=== PATIENT | male | born 1935 | race Caucasian/White ===

== ENCOUNTER 2016-10-27 19:34 | Inpatient (IN) ==
[2016-10-27 19:59] LABS: MANUAL DIFF NEEDED? NO
[2016-10-27 20:17] LABS: BASO% 0.6 % (0.0-0.8); EOS# 0.58 X1000 (0.0-0.7); EOS% 8.9 % (0.0-10.0); HEMATOCRIT 31.9 % (42.0-52.0); HEMOGLOBIN 9.9 g/dL (14.0-18.0); LYMPH# 2.41 X1000 (1.2-3.4); MCH 24.9 PG (27-31); MCV 80.2 FL (81-99); MONO# 0.69 X1000 (0.11-0.59); MONO% 10.6 % (1.7-9.3); MPV 10.7 FL (7.4-10.4); NEUT% 42.9 % (42.2-75.2); PLT 236 X1000 (130-400); RBC 3.98 XMIL (4.7-6.1)
[2016-10-27 20:39] LABS: ALBUMIN 3.8 g/dL (3.5-5.0); CALCIUM 8.7 mg/dL (8.8-10.2); POTASSIUM 4.1 mmol/L (3.5-5.1); TOTAL BILIRUBIN 0.31 mg/dL (0.20-1.00); TOTAL PROTEIN 7.3 g/dL (6.3-8.3)
[2016-10-27 23:33] LABS: INR 1.08; PROTIME 11.4 Seconds (9.2-11.7); PTT 28.5 Seconds (22.0-36.0)
[2016-10-28] MEDS ORDERED: NS 1,000 ML IV ONE (00:29)
--- NOTE | 2016-10-28 01:31 | PROVIDER DOCUMENTATION ---
This chart was entered by Kristie Puri Scribe, acting as scribe for Praveen Avila PA. HPI-Abdominal Pain/GI Problem - General Chief Complaint: GI Bleed Stated Complaint: PASSING BLOOD Time Seen by Provider: 10/27/16 22:32 Source: patient Allergies/Adverse Reactions: Patient Allergies Allergy/AdvReac Type Severity Reaction Status Date / Time No Known Allergies Allergy Verified 10/27/16 22:55 Home Medications: Home Medication List Medication Instructions Recorded Confirmed Last Taken Type Aspirin 81 mg PO DAILY 10/24/13 10/27/16 10/27/16 History Isosorbide Mononitrate E.r. [Imdur] 30 mg PO DAILY 10/24/13 10/27/16 10/27/16 History Metoprolol [Lopressor] 25 mg PO BID 10/24/13 10/27/16 10/27/16 History PRAVAstatin [Pravachol] 40 mg PO DAILY 10/24/13 10/27/16 10/27/16 History Metoclopramide [Reglan] 10 mg PO DAILY 10/27/16 10/27/16 10/27/16 History Omeprazole 20 mg PO DAILY 10/27/16 10/27/16 10/27/16 History Sucralfate [Sucralfate] 1 gm PO TID 10/27/16 10/27/16 10/27/16 History - History of Present Illness-ABD Nature of Presenting Problems: PT IS A 80YOM PRESENTING TO THE ED C/O BLOODY BM. PT STATES ABOUT AN HOUR AGO HE FELT THE URGE TO HAVE A BM AND WENT TO RESTROOM AND PASSED A LARGE AMOUNT OF BRIGHT RED BLOOD, PT WAS UNSURE IF THERE WAS ANY STOOL IN THE BLOOD. PT STATES THEN ABOUT 30MINS AFTER THAT HE HAD ANOTHER LARGE AMOUNT OF BRIGHT RED BLOOD STOOLS. PT DENIES ANY ABD PAIN OR OTHER COMPLAINTS. PT DOES STATE HE SAW HIS PCP APPROXIMATELY A WEEK AGO AND PUT ON CARAFATE AND HAS NO ABD DISCOMFORT OR ISSUES UNTIL THIS EVENING. Abdominal Pain Onset Location: denies: RUQ, LUQ, RLQ, LLQ, epigastric, periumbilical, suprapubic, generalized abdomen, flank, unknown, other Pain Radiation: denies: no radiation, RUQ, LUQ, RLQ, LLQ, epigastric, periumbilical, flank, groin, scapula, shoulder, chest, back, other Quality of Pain: denies: none, aching, burning, cramping, dull, fullness, indigestion, pressure, sharp, stabbing, tearing, throbbing, tightness, other Severity in ED: reports: moderate Onset/Duration: reports: just prior to arrival, 1-3 hours ago Timing: reports: intermittent Activities at Onset: reports: light activity Modifying Factors: improves with: nothing Associated Symptoms: reports: diarrhea. denies: chest pain, constipation Last BM: this evening Dark Stools Present?: reports: bright red blood Rectal Bleeding: reports: other (LARGE AMOUNT OF BRIGHT RED BLOOD) Rectal Pain: reports: none Emesis Description: reports: none Bruising or Bleeding Gums?: No Similar Symptoms Previously?: No Recently seen or treated by another doctor?: No Review of Systems - Adult - REVIEW OF SYSTEMS - ADULT Constitutional: reports: no symptoms reported Eyes: reports: no symptoms reported Ears, Nose, Mouth & Throat: reports: no symptoms reported Cardiovascular: reports: no symptoms reported Respiratory: reports: no symptoms reported Gastrointestinal: reports: see HPI, diarrhea, rectal bleeding. denies: abdominal pain, nausea, vomiting Genitourinary: reports: no symptoms reported Musculoskeletal: reports: no symptoms reported Integumentary: reports: no symptoms reported Neurological: reports: no symptoms reported Psychiatric: reports: no symptoms reported Endocrine: reports: no symptoms reported Hematologic/Lymphatic: reports: no symptoms reported Allergic/Immunologic: reports: no symptoms reported All Other Systems: Reviewed and Negative Past History - Adult - PAST MEDICAL HISTORY-ADULT Review of Records: reports: Old Records Reviewed, Nursing Assessment Review, Medications Reviewed, Social history reviewed & non-contributory. Major Childhood Illnesses: reports: denies history Cardiovascular: reports: denies history Respiratory: reports: denies history Gastrointestinal: reports: denies history Obstetrical/Gynecological: reports: denies history Genitourinary: reports: denies history Musculoskeletal: reports: denies history Neurological: reports: denies history Endocrine/Immune: reports: denies history Other Conditions: reports: denies history - IMMUNIZATION STATUS Childhood Immunizations: See Nurse Assessment Flu Vaccine: See Nurse Assessment - FAMILY HISTORY Family History: reviewed, not pertinent - SOCIAL HISTORY Smoking: denies, non-smoker Substance Use: none/never, denies Alcohol Use Frequency: never Living Situation: family Physical Exam-General - PHYSICAL EXAM-ADULT Initial Vital Signs Reviewed: Yes - CONSTITUTIONAL General Appearance: appears well, alert, mild distress. negative: no apparent distress - EYES Eyes: PERRL/EOMI, pink conjunctivae, fundi clear, no AV nicking - HEAD, EARS, NOSE, MOUTH & THROAT HENMT: normocephalic/atraumatic, moist mucous membranes, normal ENT inspection, TMs normal, pharynx normal - NECK Neck: non-tender, full range of motion, supple, normal inspection - RESPIRATORY Respiratory: chest non-tender, lungs clear, normal breath sounds, no pleuratic chest pain, no respiratory distress, no accessory muscle use - CARDIOVASCULAR Cardiovascular: normal peripheral pulses, regular rate, rhythm, no edema, no gallop, no JVD, no murmur - GASTROINTESTINAL (ABDOMEN) Abdominal Exam: normal bowel sounds, non tender, soft, no organomegaly, no pulsatile mass - GENITOURINARY Rectal Exam: normal rectal tone, blood streaked stool. negative: decreased tone , hemorrhoids, mass, prostate enlarged/nodule, tenderness Hemoccult Exam: other (the stool occult came back as negative; however there was obvious gross blood even on the exam and on my finger so I do not agree with this) - LYMPHATIC Lymphatic: no adenopathy - MUSCULOSKELETAL Back Exam: normal inspection, no CVA tenderness, no vertebral tenderness Extremity: normal range of motion, non-tender, normal gait, normal inspection, no pedal edema, no calf tenderness, normal capillary refill, pelvis stable - SKIN Integumentary: normal color, normal turgor, warm/dry - NEUROLOGIC Neurologic: cream ripener II-XII nml as tested, grossly normal, no motor/sensory deficits - PSYCHIATRIC Psych/Mental Status: normal mood/affect, normal thought content, normal thought process, oriented x 3 Progress - PLAN OF CARE/RESULTS Progress/Plan/Lab Results: Vital Signs - 8 hr 10/27/16 19:47 Temperature 97.8 F Pulse Rate 60 Respiratory Rate 12 Blood Pressure 119/75 O2 Sat by Pulse Oximetry 100 Laboratory Results - last 24 hr 10/27/16 10/27/16 19:50 19:50 WBC 6.52 RBC 3.98 L Hgb 9.9 L Hct 31.9 L MCV 80.2 L MCH 24.9 L MCHC 31.0 L RDW Std Deviation 15.6 H Plt Count 236 MPV 10.7 H Immature Gran % (Auto) 0.0 Neut % (Auto) 42.9 Lymph % (Auto) 37.0 [place] % (Auto) 10.6 H Eos % (Auto) 8.9 Baso % (Auto) 0.6 Immature Gran # (Auto) 0.00 Neut # (Auto) 2.80 Lymph # (Auto) 2.41 [place] # (Auto) 0.69 H Eos # (Auto) 0.58 Baso # (Auto) 0.04 Sodium 143 Potassium 4.1 Chloride 105 Carbon Dioxide 23 L Anion Gap 15 BUN 26 H Creatinine 1.3 H Estimated GFR/1.73 m2 53 BUN/Creatinine Ratio 20 Glucose 108 H Calculated Osmolality 290 Calcium 8.7 L Total Bilirubin 0.31 AST 17 ALT 9 L Alkaline Phosphatase 67 Total Protein 7.3 Albumin 3.8 Globulin 3.5 Albumin/Globulin Ratio 1.1 Orders Category Date Time Status Saline Loc NOW Care 10/27/16 22:33 Active CBC WITH DIFF [HEME] Stat Lab 10/27/16 19:50 Completed CMP [COMPREHENSIVE METABOLIC PANEL] [CHEM] Stat Lab 10/27/16 19:50 Completed OCCULT BLOOD NON-FECES Stat Lab 10/27/16 19:49 Uncollected PROTIME WITH INR [COAG] Stat Lab 10/27/16 22:33 Ordered PTT [COAG] Stat Lab 10/27/16 22:33 Ordered TYPE & SCREEN [BBK] Stat Lab 10/27/16 22:33 Ordered Will admit pt for GI bleed. I believe that this is most likely diverticulosis given the H&P. Result Diagrams: 10/27/16 19:50 10/27/16 19:50 - CONSULTS/PCP/HOSPITALIST Notification #1 *Consult/PCP/Hospitalist*: Dr. Ashley Time Discussed: 01:30 Consult Disposition: Admit Departure - Departure Time of Disposition Decision: 01:30 DIAGNOSIS: GI bleed Qualifiers: GI bleed type/associated pathology: unspecified gastrointestinal hemorrhage type Qualified Code(s): K92.2 - Gastrointestinal hemorrhage, unspecified Disposition: ADMITTED INPATIENT 09 Certified Medical Emergency: Emergent Condition: Stable Referrals and Follow-Ups: David Vail,Tang Aguirre MD [Primary Care Provider] - Attestation - Physician/ PAULINA Attestation Patient care was provided by Advanced Practice Provider:: Yes Advanced Practice Provider:: Praveen Avila Advanced Practice Provider documentation review:: The Mid-level provider documentation, treatment plan and medical decision making was reviewed by the physician who agrees with all treatment and medical decision making by the MLP. This chart was documented by the indicated scribe, (Kristie Puri Scribe) and accurately reflects the services I performed and decisions made by Austin russ Steven Wesley, PA, as attested by the provider's signature.
--- NOTE | 2016-10-28 03:46 | HISTORY AND PHYSICAL ---
PRIMARY CARE PHYSICIAN: Dr. Tang Hernandez. CHIEF COMPLAINT: Rectal bleeding. HISTORY OF PRESENT ILLNESS: This is an 80-year-old, male with a past medical history of coronary artery disease, hypertension, and hypercholesteremia who presented to the emergency department after he passed some rectal bleeding. Patient reported that he noticed bright red blood in the stool that happened yesterday around 7 p.m. After 5 minutes, he had another episode of moderate amount of bleeding per rectum so he decided to come to the emergency department. He denies any heartburn, any nausea, vomiting. In the ER, he was evaluated and he was found to have a hemoglobin that was low, 9.9. Because of that, we are going to admit this patient to the hospital for a GI bleeding workup. PAST MEDICAL HISTORY: 1. Hypertension. 2. Coronary artery disease. 3. Dyslipidemia. PAST SURGICAL HISTORY: 1. Placement of a permanent pacemaker 5 years ago. 2. CABG x4 in 2010 performed at [facility]. SOCIAL HISTORY: Patient reports living with his . Denies drinking alcohol , using tobacco, or abusing drugs. ALLERGIES: No known drug allergies. REVIEW OF SYSTEMS: Eleven systems were reviewed and all symptoms are related to H and P. PHYSICAL EXAMINATION: VITALS: Temperature 97.6 degrees, heart rate 62, respiratory rate 16, blood pressure 135/73, O2 saturation 100% on room air. GENERAL: This is an 80-year-old, male, lying in bed, in no acute distress. HEENT: Head is normocephalic and atraumatic. Anicteric sclerae and pale conjunctivae. Mucous membranes are moist. NECK: Supple. No carotid bruits. No lymphadenopathy. No thyromegaly. CARDIOVASCULAR: S1, S2 heard. No murmurs, gallops, or rubs. Regular rate and rhythm. RESPIRATORY: Clear bilaterally to auscultation. No work of breathing or using accessory muscles. ABDOMEN: Soft, nontender to palpation. Bowel sounds present. No organomegaly. EXTREMITIES: No clubbing, cyanosis, or edema. Peripheral pulses present in both legs. NEUROLOGICAL: Patient is alert and oriented x3. Able to move 4 extremities. Cranial nerves 2-12 grossly normal. LABORATORY DATA: White cell count 6.52, hemoglobin 9.9, hematocrit 31.9, platelets 236,000. CMP shows creatinine 1.3 and BUN 26. ASSESSMENT: 1. Rectal bleeding. 2. Coronary artery disease. 3. Hypertension. 4. Hyperlipidemia. PLAN: 1. The patient is going to be admitted to the hospital for rectal bleeding. Gastroenterology has been consulted. We are going to provide fluid resuscitation with normal saline at 75 mL per hour. 2. For coronary artery disease, we are going to hold, of course, aspirin in anticipation for any future procedure. 3. For hypertension and hypercholesteremia, we will continue with home medications. 4. For BRIAN, actually we are going to provide IV fluids, in this case at 75 mL of normal saline per hour. 5. Further recommendations to follow according to the clinical situation of the patient. 6. His primary care physician, Dr. Tang Hernandez, will resume care of this patient today at 7 a.m. cc: Timi Verdugo MD MTDD
[2016-10-28] MEDS ORDERED: ZOFRAN IV PRN (04:15)
[2016-10-28 05:45] LABS: MANUAL DIFF NEEDED? NO
[2016-10-28 05:48] LABS: BASO% 0.5 % (0.0-0.8); EOS# 0.67 X1000 (0.0-0.7); EOS% 8.9 % (0.0-10.0); HEMATOCRIT 31.9 % (42.0-52.0); HEMOGLOBIN 9.9 g/dL (14.0-18.0); LYMPH# 2.88 X1000 (1.2-3.4); LYMPH% 38.3 % (20.5-51.1); MCH 24.8 PG (27-31); MCV 79.9 FL (81-99); MONO# 0.85 X1000 (0.11-0.59); MONO% 11.3 % (1.7-9.3); MPV 10.1 FL (7.4-10.4); PLT 235 X1000 (130-400); RBC 3.99 XMIL (4.7-6.1)
[2016-10-28] MEDS: NS 1,000 ML IV SCH ×2 (05:58→20:40)
[2016-10-28] MEDS: PROTONIX IV SCH ×2 (05:59→15:46)
[2016-10-28 06:16] LABS: AGAP 11; BUN 27 mg/dL (8-22); CALCIUM 8.8 mg/dL (8.8-10.2); CHLORIDE 106 mmol/L (98-107); COSMO 292; POTASSIUM 4.4 mmol/L (3.5-5.1); SODIUM 144 mmol/L (136-145); TCO2 27 mmol/L (25-35)
--- NOTE | 2016-10-28 08:49 | Diag Imaging Result Document ---
PROCEDURE NAME: ABDOMEN/PELVIS W/O CONTRAST - 10/28/2016 CT ABDOMEN AND PELVIS: A CT dose reduction protocol was used. COMPARISON: None. FINDINGS: There is moderately advanced peripheral interstitial pulmonary fibrosis in the lung bases. There are pacemaker leads in the heart. There is a moderately large hiatal hernia. There are left renal cysts. No radiodense renal stones. No hydronephrosis or hydroureter. There is severe diverticulosis of the descending and sigmoid colon. No bowel obstruction or inflammation. Urinary bladder, prostate, and rectum are normal. Advanced degenerative changes of the lower spine. No acute bony lesions. IMPRESSION: Nonspecific findings described above. Negative for renal stone disease. MTDD
[2016-10-28] MEDS ORDERED: PRAVACHOL PO SCH (09:00)
[2016-10-28 09:29] LABS: IRON SATURATION 5 %; TIBC 373 ug/dL; TOTAL IRON 19 ug/dL (53-167); UNBOUND IRON 354 ug/dL (112-346)
[2016-10-28] MEDS: REGLAN PO SCH (10:38)
[2016-10-28] MEDS: IMDUR PO SCH (10:38)
[2016-10-28] MEDS: CARAFATE PO SCH ×3 (10:38→20:40)
[2016-10-28] MEDS: LOPRESSOR PO SCH ×2 (10:38→20:40)
[2016-10-28] MEDS: PRAVACHOL PO SCH (20:40)
[2016-10-28] MEDS ORDERED: GOLYTELY PO ONE (21:00)
--- NOTE | 2016-10-29 06:04 | CONSULTATION ---
DATE OF CONSULTATION: 10/28/2016 PRIMARY CARE PHYSICIAN: Tang Hernandez M.D. REFERRING PHYSICIAN: Timi Verdugo M.D. INDICATION FOR CONSULTATION: 1. Rectal bleeding. 2. Anemia. HISTORY OF PRESENT ILLNESS: The patient is an 80-year-old white male who has severe coronary artery disease, hypertension, hypercholesterolemia. The patient reports that approximately 10 days prior to admission, he noted an increase in his chronic abdominal pain which included heartburn, indigestion, epigastric discomfort. He reports that the pain was so severe that he presented to urgent care and was placed on PPI therapy and Carafate. His abdominal pain, nausea and heartburn have resolved with the current treatment. However, approximately 1 day prior to admission, he developed bright red blood per rectum. He subsequently presented to the emergency room for further evaluation. He was found to have a hemoglobin of 9.9. We are asked to perform endoscopic evaluation. PAST MEDICAL HISTORY: 1. Hypertension. 2. Coronary artery disease. 3. Dyslipidemia. 4. Atrial fibrillation. 5. GERD. 6. Large hiatal hernia. 7. Diverticulosis. 8. No history of colon polyps. He reports a negative screening colonoscopy 3 years ago. 9. Interstitial pulmonary fibrosis. 10. Degenerative disk disease of the lower spine. PAST SURGICAL HISTORY: 1. Placement of a permanent pacemaker in 2011. 2. Coronary artery bypass surgery x 4 vessels in 2010 performed at [facility]. SOCIAL HISTORY: Negative for alcohol, tobacco or recreational drug use. He is and lives with his . MEDICATION ALLERGIES: None. HOME MEDICATIONS: 1. Carafate. 2. Pravachol. 3. Omeprazole. 4. Lopressor. 5. Reglan. 6. Imdur. 7. Aspirin. (Please note that the patient was begun on Carafate and Reglan approximately 1 week ago). REVIEW OF SYSTEMS: Remarkable for recent epigastric discomfort and GI distress as noted above. He also reports multiple bloody bowel movements prior to admission and in the emergency room. He denies chest pain and shortness of breath. PHYSICAL EXAMINATION: General: On exam, he is in no acute distress. Vital Signs: His blood pressure is 101/70 pulse of 59, respirations 16, temperature of 98.7 degrees. HEENT: Negative for jaundice. His sclerae are pale. His oropharyngeal mucosal membranes are normal. Pulmonary: Lungs are clear to auscultation with normal respiratory effort. Cardiovascular Exam: Reveals regular rate and rhythm with no murmurs, gallops, or rubs. He does have a midline sternotomy scar that is well healed. Abdominal Exam: His abdomen is soft and nontender. There is no rebound or guarding. There are normoactive bowel sounds. Extremities: Bilaterally are negative for cyanosis, clubbing, or edema. Neurologic: He is alert and oriented x3 with appropriate mood, affect, and memory. OBJECTIVE DATA: Reveals a hemoglobin of 9.9 with hematocrit of 31.9 and a white count 7.51. He has 235,000 platelets. Sodium is 144, potassium 4.4, chloride 106, CO2 27, BUN 27, creatinine 1.2, glucose 92. Calcium is 8.8, B12 is 236, iron 19 and ferritin 12. IMPRESSION: 1. Rectal bleeding. 2. Gastroesophageal reflux disease. 3. Hiatal hernia. 4. Diverticulosis. 5. Vitamin B12 deficiency. 6. Iron deficiency anemia. RECOMMENDATION: 1. In light of the patient's recent increase in upper GI symptoms, I recommend an EGD to further evaluate his upper GI tract. He also has significant vitamin B12 deficiency which warrants evaluation of the gastric lining as well as the duodenal lining for malabsorptive processes. 2. He has active rectal bleeding. He has a history of diverticulosis. There is no history of colon polyps or colon cancer. However, I recommend a colonoscopy for further evaluation of his lower GI bleed. 3. Monitor serial hemoglobin and hematocrit and transfuse as indicated. 4. Continue Protonix 40 mg IV q.12 hours. 5. Continue Carafate 1 g p.o. t.i.d. Please hold this medication prior to his endoscopy. 6. Continue Reglan for the time being. We will need to determine if he truly has a need for Reglan given its potential for adverse reactions in adults, particularly those over the age 65. 7. Additional recommendations to follow based on his clinical course and his endoscopic findings. cc: MD Tang eDlgado Jr, MD Cesar Garcia-Rodriguez, MD MTDD
[2016-10-29 06:35] LABS: MANUAL DIFF NEEDED? NO
[2016-10-29 06:38] LABS: BASO% 0.8 % (0.0-0.8); EOS# 0.41 X1000 (0.0-0.7); EOS% 6.9 % (0.0-10.0); HEMATOCRIT 27.5 % (42.0-52.0); HEMOGLOBIN 8.6 g/dL (14.0-18.0); LYMPH# 1.76 X1000 (1.2-3.4); LYMPH% 29.7 % (20.5-51.1); MCH 24.9 PG (27-31); MCHC 31.3 g/dL (33-37); MCV 79.5 FL (81-99); MONO# 0.74 X1000 (0.11-0.59); MONO% 12.5 % (1.7-9.3); MPV 10.1 FL (7.4-10.4); NEUT% 50.1 % (42.2-75.2); PLT 207 X1000 (130-400); RBC 3.46 XMIL (4.7-6.1)
[2016-10-29 06:54] LABS: AGAP 10; BUN 17 mg/dL (8-22); CALCIUM 8.8 mg/dL (8.8-10.2); CHLORIDE 106 mmol/L (98-107); COSMO 285; POTASSIUM 4.2 mmol/L (3.5-5.1); SODIUM 142 mmol/L (136-145); TCO2 26 mmol/L (25-35)
[2016-10-29] MEDS: PROTONIX IV SCH ×2 (07:02→18:03)
--- NOTE | 2016-10-29 09:46 | PROGRESS NOTE ---
DATE: 10/29/2016 SUBJECTIVE: The patient says he got up 28 times last night to go to the bathroom and had bleeding in his stool 19 of those 28 times. OBJECTIVE: Vital signs: Blood pressure is 131/77, respirations 20, pulse 61, temp 98.4 degrees Fahrenheit. HEENT: Normocephalic, EOMs intact. PERRLA. Throat clear. Lungs: Clear to auscultation and percussion without rhonchi, rales, or wheezes. Heart: Regular rate and rhythm without murmurs, gallops, or friction rubs. Abdomen: Soft with active bowel sounds, no organomegaly or tenderness. Neurological: Intact grossly. LABORATORY DATA: Chemistries are essentially normal. White count is 5930, hemoglobin has dropped from 9.9 down to 8.6. Vitamin B12 level was also low at 236. His iron level was low at 19. Unsaturated iron binding was high at 354. ASSESSMENT: 1. Gastrointestinal bleed. 2. Iron-deficiency anemia. 3. Vitamin B12 deficiency. 4. Coronary artery disease. PLAN: The patient is to have endoscopy today. Will start him on Vitamin B12 injections. Please note, CT scan of the abdomen did show diverticulosis. cc: Tagn Hernandez Jr, MD
[2016-10-29] MEDS ORDERED: DIPRIVAN 1% ONE (14:14)
[2016-10-29] MEDS ORDERED: XYLOCAINE-MPF 2% ONE (14:20)
[2016-10-29] MEDS: CYANOCOBALAMIN IM SCH (15:28)
[2016-10-29] MEDS: CARAFATE PO SCH ×3 (16:07→19:23)
[2016-10-29] MEDS: IMDUR PO SCH (16:08)
[2016-10-29] MEDS: REGLAN PO SCH (16:08)
[2016-10-29] MEDS: LOPRESSOR PO SCH ×2 (16:09→21:27)
--- NOTE | 2016-10-29 16:48 | Diag Imaging Result Document ---
PROCEDURE NAME: THORAX/ABDOMEN/PELVIS - 10/29/2016 CT CHEST, ABDOMEN, AND PELVIS WITH INTRAVENOUS CONTRAST. TECHNIQUE: Dose reduction protocol. CHEST WITH CONTRAST. COMPARISON: No comparison films. FINDINGS: No pleural effusions. There is a moderate-sized hiatal hernia. No thoracic aortic aneurysm or dissection. Heart is borderline mildly prominent. Sternal wires are present. Mildly enlarged mediastinal lymph nodes. There are several calcified hilar lymph nodes with scattered granulomata. Increased interstitial markings in the periphery of the lungs consistent with fibrosis. No consolidation. IMPRESSION: 1. Fibrosis. 2. Mildly enlarged mediastinal lymph nodes. 3. There is evidence of a prior granulomatous infection. 4. Moderate-sized hiatal hernia. ABDOMEN AND PELVIS WITH ORAL AND INTRAVENOUS CONTRAST. COMPARISON: Compared to 10/28/2016. FINDINGS: There is a moderate-sized hiatal hernia. Normal spleen, liver, pancreas, gallbladder, and adrenal glands. There is a 4.1 cm cyst arising from the posterior left kidney. No aortic aneurysm. Mild atherosclerosis. No bowel obstruction. Multiple diverticula are found in the distal colon. No free air. No abscess. The urinary bladder is moderately distended. Mildly prominent prostate. IMPRESSION: 1. Moderate-sized hiatal hernia. 2. Renal cyst. 3. Diverticulosis.
[2016-10-29] MEDS: NS 1,000 ML IV SCH (17:18)
[2016-10-29] MEDS: FLAGYL 250 MG/NS 250 MG/50 ML IVPB IV SCH ×2 (18:03→23:58)
[2016-10-29] MEDS: SODIUM CHLORIDE 0.9% INJ SCH (18:03)
--- NOTE | 2016-10-29 19:08 | OPERATIVE NOTE ---
PROCEDURE DATE: 10/29/2016 REFERRING PHYSICIAN: Tang Hernandez M.D. INDICATION FOR PROCEDURE: 1. GERD. 2. Epigastric pain. 3. Hiatal hernia. 4. Iron deficiency anemia. 5. Intermittent dysphagia. PROCEDURE PERFORMED: Esophagogastroduodenoscopy. CONSENT: Informed consent was obtained from the patient prior to the procedure. The risks, benefits, and alternatives were discussed. MEDICATION: The patient received monitored anesthesia care. PERFORMING PHYSICIAN: Fadia Tony M.D. ASSISTANTS: 1. NADER Jay. 2. Yulisa Oleary RN. 3. Kanu Meléndez RN. 4. Amber Vasquez CRNA. 5. Sampson Durham M.D. (anesthesia). COMPLICATIONS: There were no complications. ESTIMATED BLOOD LOSS: None. SPECIMENS REMOVED: None. FINDINGS: After sedation was achieved, the upper endoscope was inserted to the 2nd portion of the duodenum. The hypopharynx and tubular esophagus appeared endoscopically normal. In the distal esophagus, there was a Schatzki ring with mild obstructive features at the GE junction. With moderate amount of pressure, the scope was able to pass through the Schatzki ring. The GE junction was measured at 36 cm from the incisors. There was a hiatal hernia that spanned from 36-44 cm. In the hiatal hernia sac, there were deep erosions with inflammation consistent with erosive gastritis. In the gastric body, there was mild erythema in the antrum and body as opposed to severe erosive gastritis in the hiatal hernia sac in the cardia. The fundus appeared inflamed with mild gastritis but was otherwise normal. The pylorus was endoscopically normal. There was minimal duodenitis in the duodenal bulb. After the exam was complete, the lumen was decompressed and the scope was removed without incident. IMPRESSION: 1. Schatzki ring with mild obstructive features. 2. Hiatal hernia. 3. Erosive gastritis. 4. Mild duodenitis. RECOMMENDATION: 1. Continue Protonix 40 mg daily. 2. Continue Carafate 1 g p.o. 3 times to 4 times a day for a total of 12 weeks. 3. I will schedule repeat EGD with dilation in approximately 12 weeks as the patient reports symptoms for a number of years. 4. Will proceed with a colonoscopy as previously scheduled. cc: MD Tang Delgado Jr, MD MTDD
[2016-10-29] MEDS: LEVAQUIN 750 MG/D5W 750 MG/150 ML IVPB IV SCH (19:51)
--- NOTE | 2016-10-29 20:36 | OPERATIVE NOTE ---
PROCEDURE DATE: 10/29/2016 REFERRING PHYSICIAN: Dr. Tang Hernandez M.D. INDICATION FOR PROCEDURE: 1. Rectal bleeding. 2. History of diverticulosis. 3. Iron deficiency anemia. PROCEDURE PERFORMED: Colonoscopy with biopsy. CONSENT: Informed consent was obtained from the patient prior to the procedure. The risks, benefits, and alternatives were discussed. MEDICATION: The patient received monitored anesthesia care. PERFORMING PHYSICIAN: Fadia Tony M.D. ASSISTANTS: 1. ST. [facility] 2. Yulisa Oleary RN. 3. Kanu Meléndez RN. 4. Amber Vasquez CRNA. 5. Smapson Durham M.D. (anesthesia). COMPLICATIONS: None. ESTIMATED BLOOD LOSS: Less than 2 mL. SPECIMENS REMOVED: Ascending colon mass. CECAL INTUBATION TIME: 8 minutes. WITHDRAWAL TIME: 16 minutes. PREP QUALITY: Poor. FINDINGS: After the EGD was performed, the patient was repositioned. The pediatric colonoscope was inserted to the cecum. The ileocecal valve and appendiceal orifice appeared endoscopically normal. In the proximal ascending colon, there was an apple-core lesion with ulceration and friable mucosa. The mass was firm on biopsy. Multiple biopsies were taken. Nicky ink 0.5 mL x4 was placed on the proximal side of the mass. Nicky ink 0.5 mL x4 was placed on the distal side of the lesion. Upon withdrawal of the scope, there was copious amounts of fecal residue. However, multiple sessile colon polyps that appeared benign were found in the transverse and descending colon. In the descending colon, sigmoid colon, and rectosigmoid colon there was extensive diverticulosis. There were diverticula seen throughout the colon that were mild but in the left colon, there was severe diverticulosis. It should be noted that multiple diverticula in the sigmoid colon had purulent exudate and bowel wall edema with erythema consistent with acute diverticulitis. In the upper rectum, the mucosa appeared inflamed but otherwise normal. On retroflexed view, there were medium external hemorrhoids. After the exam was complete, the lumen was decompressed and the scope was removed without incident. IMPRESSION: 1. Proximal ascending colon apple-core lesions strongly suspicious for adenocarcinoma of the colon. 2. Multiple benign-appearing colon polyps that remain intact. 3. Stevens diverticulosis with a left sided predominance. 4. Rectus sigmoid acute diverticulitis. 5. External hemorrhoids. RECOMMENDATIONS: 1. Because of the lesion in the ascending colon, I will obtain a chest, abdomen , and pelvis CT scan. 2. I will also check a CEA level. 3. I recommend a surgical consult with Dr. Darci Avalos M.D. 4. I will consult Dr. Henry Black M.D. from hematology/oncology service for further assistance. 5. Await endoscopic biopsy results. 6. Findings were discussed with the patient, his , and their daughter. 7. Our plan was discussed with Dr. Tang Hernandez. cc: MD Tang Delgado Jr, MD [facility] HOSPITALMichelle
[2016-10-29] MEDS: PRAVACHOL PO SCH (21:28)
[2016-10-30] MEDS: NS 1,000 ML IV SCH ×2 (04:07→16:24)
[2016-10-30] MEDS: FLAGYL 250 MG/NS 250 MG/50 ML IVPB IV SCH ×3 (05:47→21:37)
[2016-10-30] MEDS: PROTONIX IV SCH ×2 (05:48→17:08)
[2016-10-30 06:37] LABS: MANUAL DIFF NEEDED? NO
[2016-10-30 06:48] LABS: BASO% 0.3 % (0.0-0.8); EOS# 0.19 X1000 (0.0-0.7); EOS% 2.2 % (0.0-10.0); HEMOGLOBIN 7.9 g/dL (14.0-18.0); LYMPH# 1.92 X1000 (1.2-3.4); LYMPH% 22.2 % (20.5-51.1); MCH 24.5 PG (27-31); MCHC 30.4 g/dL (33-37); MCV 80.5 FL (81-99); MONO# 0.91 X1000 (0.11-0.59); MONO% 10.5 % (1.7-9.3); NEUT% 64.8 % (42.2-75.2); PLT 208 X1000 (130-400); RBC 3.23 XMIL (4.7-6.1)
[2016-10-30 07:08] LABS: CALCIUM 8.6 mg/dL (8.8-10.2); POTASSIUM 5.1 mmol/L (3.5-5.1)
--- NOTE | 2016-10-30 08:27 | PROGRESS NOTE ---
DATE: 10/30/2016 SUBJECTIVE: The patient says he is feeling fine, has not had a bowel movement in the last 24 hours. Had bleeding in his stool before that. Did have his colonoscopy which shows an apple-core lesion in the proximal ascending colon. Biopsies were done and are pending. CT scan of the pelvis has been ordered. He has already had a CT scan of the abdomen. Consultation has been made with surgery, Dr. Darci Avalos, and with oncology, Dr. Henry Black. OBJECTIVE: Vital Signs: Blood pressure is 116/63, pulse 64 and regular, respirations 16 and unlabored, temperature 98.3 degrees Fahrenheit. HEENT: Normocephalic. EOM's intact. PERRLA. Throat clear. Lungs: Clear to auscultation and percussion without rhonchi, rales, or wheezes. Heart: Regular rate rhythm without murmurs, gallops, or friction rubs. Abdomen: Soft. Active bowel sounds. No organomegaly or tenderness. Neurological exam: Intact grossly. LABS: White count is 8630, hemoglobin is down to 7.9, hematocrit 26.0. Potassium 5.1, sodium 144, creatinine 1.3, BUN 15. ASSESSMENT: 1. Gastrointestinal bleed. 2. Probable colon cancer. 3. Anemia. 4. Iron deficiency. 5. Vitamin B 12 deficiency. 6. Coronary artery disease. PLAN: Continue support and workup. cc: Tang Hernandez Jr, MD
[2016-10-30] MEDS: IMDUR PO SCH (09:39)
[2016-10-30] MEDS: LOPRESSOR PO SCH ×2 (09:39→23:09)
[2016-10-30] MEDS: CARAFATE PO SCH ×3 (09:39→16:34)
[2016-10-30] MEDS: REGLAN PO SCH (09:39)
[2016-10-30] MEDS: CYANOCOBALAMIN IM SCH (09:40)
--- NOTE | 2016-10-30 11:15 | CONSULTATION ---
DATE OF CONSULTATION: 10/30/2016 REFERRING PHYSICIAN: Dr. Fadia Tony. REASON FOR REFERRAL: GI bleed, ascending colon mass. HISTORY OF PRESENT ILLNESS: Mr. Lachelle Guerrero is a very pleasant, 80-year-old man with a history of coronary artery disease, hypertension and dyslipidemia who was admitted to [facility] on Tuesday after experiencing rectal bleeding. He was found to have a hemoglobin of 9.9. GI was consulted and Dr. Fadia Tony performed a colonoscopy. Upon further evaluation, she found an ascending colon mass. A CEA level was obtained as well as a CT of the chest, abdomen and pelvis which showed mildly enlarged mediastinal lymph nodes. Dr. Avalos has been consulted to discuss a possible resection. Today the patient's hemoglobin is 7.9, and hematocrit is 26. He is iron deficient with an iron saturation of 5%. He is also deficient in vitamin B12. Vitamin B12 injections have been started. The Hematology/Oncology service was placed on consult to provide further workup and treatment options. PAST MEDICAL HISTORY: As mentioned above. PAST SURGICAL HISTORY: Status post CABG x4 in 2010. Pacemaker placement 5 years ago. SOCIAL HISTORY: The patient denies alcohol, tobacco or illicit drug use. ALLERGIES: No known drug allergies. MEDICATIONS: As per medication sheet. REVIEW OF SYSTEMS: As per HPI. Otherwise, a 12-point review of systems was negative. PHYSICAL EXAMINATION: General: The patient appears to be in no apparent distress. Vital Signs: Blood pressure 116/63, pulse 64, respirations 16, temperature 98.3 degrees Fahrenheit, O2 saturation 98% on room air. HEENT: Head normocephalic, atraumatic. Mucosa is pink and moist. Pupils reactive to light. Oropharynx clear. Neck: Supple. No lymphadenopathy or thyromegaly. Cardiovascular: S1, S2. Regular rate and rhythm. No murmurs noted. Respiratory: Breath sounds clear to auscultation bilaterally. No rhonchi, rales, or wheezing noted. Abdomen: Soft, nontender, nondistended. Positive for bowel sounds. Extremities: No edema or evidence of DVT or cyanosis. Skin: No rashes or lesions noted. Neurological: No focal neurological deficits. ASSESSMENT: 1. Ascending colon mass. 2. Iron deficiency anemia. 3. Vitamin B12 deficiency. PLAN: 1. We agree with consulting Dr. Walker to discuss a possible resection. We will plan to discuss chemotherapy options after surgery and depending on the lymph node involvement. Biopsy is pending. 2. Iron deficiency. This is secondary to a GI bleed. We will infuse Venofer 300 mg IV daily x2 doses. We will also transfuse 1 unit of packed red blood cells and recheck a CBC in the a.m. 3. We agree with replacing vitamin B12 with injections daily. Further workup and treatment options will depend upon the patient's hospital course as well as response to current therapy. Thank you for this consult and allowing us to take part in the care of this patient. Dictated by AJ Blanton for Henry Black MD cc: MD Tang Lopez Jr, MD
--- NOTE | 2016-10-30 11:41 | CONSULTATION ---
DATE OF CONSULTATION: 10/30/2016 CHIEF COMPLAINT: Colon tumor. HISTORY: This is an 80-year-old gentleman who was admitted with rectal bleeding first noticed in the past week. He underwent a colonoscopy revealing a right-sided apple core lesion. It was tattooed by Dr. Tony. PAST MEDICAL HISTORY: Pertinent for hypertension, coronary artery disease, dyslipidemia. He had coronary bypass in 2010. He had a permanent pacemaker placed at that time. FAMILY HISTORY: Noncontributory. SOCIAL HISTORY: He is . Lives with his . Has an RN daughter. He does not drink alcohol or smoke. HOME MEDICATIONS: 1. Pravachol 40 mg daily. 2. Imdur 30 mg daily. 3. Metoprolol 25 mg b.i.d. 4. Aspirin 81 mg daily. 5. Omeprazole 20 mg daily. 6. Sucralfate 1 g t.i.d. 7. Reglan 10 mg daily. ALLERGIES: He has no known drug allergies. REVIEW OF SYSTEMS: Rather unremarkable. PHYSICAL EXAMINATION: Afebrile. Heart rate 60, respiratory rate 18, blood pressure 130/70. No cervical adenopathy. No thyroid masses. bilateral breath sounds. Heart: Regular rate and rhythm. Pacemaker is palpated in the left upper anterior chest. Abdomen is soft and nontender. Femoral pulses are present. No peripheral edema. He is awake and alert. DIAGNOSTICS: White count 8600, hemoglobin 7.9, hematocrit 26. BUN 15, creatinine 1.3. ASSESSMENT: Ascending colon cancer. PLAN: Right colectomy. I discussed the procedure, the benefits and risks with Mr. Guerrero. He understands and wants to proceed. We will put him back on clear liquids. Prep his bowel tomorrow in preparation for surgery on 11/01/2016. Thanks for the opportunity to see him. cc: MD Tang Jimenez Jr, MD
[2016-10-30] MEDS: SODIUM CHLORIDE 0.9% INJ SCH (17:08)
[2016-10-30] MEDS: LEVAQUIN 750 MG/D5W 750 MG/150 ML IVPB IV SCH (17:08)
[2016-10-30] MEDS: VENOFER 300 MG in NS 250 ML IV SCH (19:39)
[2016-10-30] MEDS: PRAVACHOL PO SCH (21:36)
[2016-10-31] MEDS: NS 1,000 ML IV SCH ×3 (04:45→18:29)
[2016-10-31] MEDS: FLAGYL 250 MG/NS 250 MG/50 ML IVPB IV SCH ×4 (04:46→21:41)
[2016-10-31] MEDS: PROTONIX IV SCH ×2 (04:46→17:51)
[2016-10-31] MEDS: SODIUM CHLORIDE 0.9% INJ SCH (04:46)
[2016-10-31 06:42] LABS: MANUAL DIFF NEEDED? NO
[2016-10-31 07:22] LABS: BASO% 0.5 % (0.0-0.8); EOS# 0.53 X1000 (0.0-0.7); EOS% 8.9 % (0.0-10.0); HEMATOCRIT 29.7 % (42.0-52.0); HEMOGLOBIN 9.4 g/dL (14.0-18.0); IMM GRAN# 0.02 X1000 (0.0-0.04); IMM GRAN% 0.3 % (0.0-0.5); LYMPH# 1.32 X1000 (1.2-3.4); LYMPH% 22.3 % (20.5-51.1); MCH 25.5 PG (27-31); MCHC 31.6 g/dL (33-37); MCV 80.5 FL (81-99); MONO# 0.63 X1000 (0.11-0.59); MONO% 10.6 % (1.7-9.3); MPV 10.2 FL (7.4-10.4); NEUT% 57.4 % (42.2-75.2); PLT 204 X1000 (130-400); RBC 3.69 XMIL (4.7-6.1)
[2016-10-31] MEDS: LOPRESSOR PO SCH (08:45)
[2016-10-31] MEDS: VENOFER 300 MG in NS 250 ML IV SCH (08:45)
[2016-10-31] MEDS: CARAFATE PO SCH ×3 (08:45→17:51)
[2016-10-31] MEDS: REGLAN PO SCH (08:46)
[2016-10-31] MEDS: CYANOCOBALAMIN IM SCH (08:46)
[2016-10-31] MEDS: IMDUR PO SCH (08:46)
[2016-10-31] MEDS ORDERED: CITRATE OF MAGNESIA PO ONE (10:00)
--- NOTE | 2016-10-31 11:06 | PROGRESS NOTE ---
DATE: 10/31/2016 SUBJECTIVE: The patient says he had a little scapular pain for about 15 minutes but it has gone away. Otherwise, he seems to be doing all right. He does tell me that he has not seen his sleep manager since last April and before he has surgery he would like to have cardiological evaluation. OBJECTIVE: Vital Signs: Blood pressure 126/72, respirations 20, pulse 59, temperature 97.6 degrees Fahrenheit. HEENT: Normocephalic. EOMs intact. PERRLA. Throat clear. Lungs: Clear to auscultation and percussion without rhonchi, rales, or wheezes. Heart: Regular rate rhythm without murmurs, gallops, or friction rubs. Abdomen: Soft. Active bowel sounds. No organomegaly or tenderness. No more rectal bleeding. Neurological: Intact grossly. ASSESSMENT: 1. Lesion right colon, most likely cancer, with an apple-core lesion. 2. Coronary artery disease. PLAN: We will get a sleep manager to evaluate today. Plan surgery for tomorrow. cc: Tang Hernandez Jr, MD
[2016-10-31] MEDS: ERYTHROMYCIN BASE PO SCH ×3 (15:45→21:40)
[2016-10-31] MEDS: NEOMYCIN PO SCH ×3 (15:46→21:41)
[2016-10-31] MEDS ORDERED: LOPRESSOR PO ONE (18:00)
[2016-10-31] MEDS: LEVAQUIN 750 MG/D5W 750 MG/150 ML IVPB IV SCH (18:50)
[2016-10-31] MEDS: PRAVACHOL PO SCH (21:40)
--- NOTE | 2016-10-31 23:30 | CONSULTATION ---
DATE OF CONSULTATION: 10/31/2016 IMPRESSION: 1. Atherosclerotic coronary disease. A) Status post previous inferior myocardial infarction. B) Status post coronary bypass grafting in 2011 at [facility]. C) Stress myocardial study 2013 demonstrated evidence of previous inferior infarction but with some trivial mild jessica-infarct ischemia but no significant burden of ischemia and a left ventricular ejection fraction 53%. D) Patient continues without angina. 2. Right colon lesion felt to be malignant. Right hemicolectomy planned. 3. Hypertension. 4. Hyperlipidemia. 5. Status post permanent pacemaker implant 5 years ago following coronary bypass surgery at [facility]. RECOMMENDATIONS: 1. Patient appears to be acceptably low perioperative risk for cardiac complications with hemicolectomy. 2. Continue beta-glenn perioperatively as permitted. HISTORY: This 80-year-old white male with past history of previous inferior infarction, coronary bypass grafting, hypertension and hyperlipidemia was recently admitted after he developed rectal bleeding. He has been found to have an apple core lesion in his right colon and right hemicolectomy is planned. Perioperative cardiac risk assessment was requested. He has continued fairly active since his bypass surgery. He walks without any chest discomfort or dyspnea. There has been no orthopnea. There has been no palpitations. He had a stress myocardial perfusion study in 2013 which demonstrated the above result. He has continued on medical management. PAST HISTORY: 1. Atherosclerotic coronary disease as outlined above. 2. Hypertension. 3. Hyperlipidemia. PAST SURGICAL HISTORY: Includes. 1. Coronary bypass surgery in 2010. 2. Status post permanent pacemaker. ALLERGIES: No known drug allergies. MEDICATIONS: Prior to admission as listed. SOCIAL HISTORY: He is retired and lives with his in [place], [place]. He does not smoke or use alcohol. FAMILY HISTORY: Negative for premature coronary disease. REVIEW OF SYSTEMS: Pulmonary: Negative for dyspnea. Gastrointestinal: Noteworthy for rectal bleeding. Otherwise, negative. Constitutional: Negative. Remaining review of systems negative/noncontributory with 14 total systems reviewed. PHYSICAL EXAMINATION: General: This is a pleasant, elderly male in no distress. Vital signs: Blood pressure 127/76, heart rate 61 and regular. HEENT Exam: Extraocular muscles appear intact. Mucous membranes are moist. Neck: Supple without JV distention. There are no carotid bruits. Chest: Clear to auscultation. Cardiac Exam: Reveals a regular rate and rhythm without appreciable murmur or gallop. Abdomen: Soft, nontender. Bowel sounds are normal. Extremities: Without edema. Neurologic Exam: Reveals him to be alert, fully oriented. Speech is fluent. Moves all 4 extremities equally well. Skin: Warm and dry. Psychiatric: Reveals mood to be appropriate. DIAGNOSTIC DATA: ECG demonstrates atrial paced rhythm, prolonged AZ interval, left axis deviation, right bundle branch block and inferior infarct of undetermined age. cc: MD Tang Maddox Jr, MD
[2016-11-01] MEDS: NS 1,000 ML IV SCH ×4 (00:28→22:16)
[2016-11-01] MEDS: SODIUM CHLORIDE 0.9% INJ SCH (03:39)
[2016-11-01] MEDS: FLAGYL 250 MG/NS 250 MG/50 ML IVPB IV SCH ×4 (03:39→22:17)
[2016-11-01] MEDS: PROTONIX IV SCH ×2 (03:39→18:53)
--- NOTE | 2016-11-01 05:28 | EKG Report ---
Test Performed on : 10/31/2016 11:24:14 AM Test Reason : cad Blood Pressure : / mmHG Vent. Rate : 060 BPM Atrial Rate : 060 BPM P-R Int : 240 ms QRS Dur : 140 ms QT Int : 502 ms P-R-T Axes : 010 -31 032 degrees QTc Int : 502 ms Atrial-paced rhythm with prolonged AV conduction Left axis deviation Right bundle branch block Inferior infarct (cited on or before 01-DEC-2011) Abnormal ECG When compared with ECG of 25-OCT-2013 06:12, Electronic atrial pacemaker has replaced Sinus rhythm. Right bundle branch block has replaced Incomplete right bundle branch block Confirmed by Larry BLANCAS, Brennan Montenegro ([id number]) on 11/01/2016 6:46:47 PM
[2016-11-01] MEDS: TOPROL XL PO SCH ×2 (06:02→09:28)
[2016-11-01] MEDS: VENOFER 300 MG in NS 250 ML IV SCH (09:04)
--- NOTE | 2016-11-01 09:23 | PROGRESS NOTE ---
DATE: 11/01/2016 SUBJECTIVE: The patient has no new complaints this morning. He is scheduled for surgery around noon or so today for his right hemicolectomy. OBJECTIVE: Vital Signs: Blood pressure 118/74, respirations 16, pulse 60, temperature 98.3 degrees Fahrenheit. HEENT: Normocephalic. EOMs intact. PERRLA. Throat clear. Lungs: Clear to auscultation and percussion without rhonchi, rales, or wheezes. Heart: Regular rate rhythm without murmurs, gallops, or friction rubs. Abdomen: Soft. Active bowel sounds. No organomegaly or tenderness. Neurological: Examination intact grossly. ASSESSMENT: 1. Colon cancer. 2. Coronary artery disease. Note that cardiology did come and evaluate him for preoperative evaluation for surgery and thought that he had an acceptable risk for the surgery. PLAN: Continue care. Patient is to have surgery later today. cc: Tang Hernandez Jr, MD
[2016-11-01] MEDS: CARAFATE PO SCH ×3 (09:27→18:53)
[2016-11-01] MEDS: REGLAN PO SCH (09:28)
[2016-11-01] MEDS: IMDUR PO SCH (09:29)
[2016-11-01] MEDS ORDERED: MARCAINE 0.25% PF/EPI 1:200,000 ONE (13:38)
[2016-11-01] MEDS ORDERED: FENTANYL ONE (16:07)
[2016-11-01] MEDS ORDERED: DIPRIVAN 1% ONE (16:08)
[2016-11-01] MEDS ORDERED: NEOSTIGMINE ONE (16:35)
[2016-11-01] MEDS ORDERED: ZOFRAN ONE (16:36)
[2016-11-01] MEDS ORDERED: ROBINUL ONE (16:36)
[2016-11-01] MEDS ORDERED: DECADRON ONE (16:36)
[2016-11-01] MEDS ORDERED: XYLOCAINE-MPF 2% ONE (16:36)
[2016-11-01] MEDS ORDERED: LR 2,000 ML ONE (16:36)
[2016-11-01] MEDS ORDERED: OFIRMEV 1000 MG/ISOTONIC SOLN 1,000 MG/100 ML BOTTLE ONE (16:36)
[2016-11-01] MEDS ORDERED: QUELICIN (DOSE) ONE (16:36)
[2016-11-01] MEDS ORDERED: ZEMURON ONE (16:36)
[2016-11-01] MEDS ORDERED: EXTENSION SET 32 IN 4522 ONE (16:36)
[2016-11-01] MEDS ORDERED: ANESTHESIA PB SET 88 IN 5742 ONE (16:36)
[2016-11-01] MEDS: MORPHINE ONE ×2 (16:45→16:50)
[2016-11-01] MEDS ORDERED: MORPHINE IV PRN (17:09)
[2016-11-01 17:39] LABS: URINE SOURCE CATH
[2016-11-01 17:42] LABS: BILIRUBIN URINE NEGATIVE (NEGATIVE); BLOOD URINE NEGATIVE (NEGATIVE); CLARITY CLEAR (CLEAR); COLOR YELLOW; GLUCOSE URINE NEGATIVE (NEGATIVE); LEUKOCYTES URINE NEGATIVE (NEGATIVE); NITRITE URINE NEGATIVE (NEGATIVE); PROTEIN URINE NEGATIVE (NEGATIVE); UROBILINOGEN URINE 0.2 EU/dL (0.2-1.0)
[2016-11-01 18:01] LABS: URINE RBC <10 /HPF (<10); URINE WBC <10 /HPF (<10)
[2016-11-01] MEDS: CYANOCOBALAMIN IM SCH (18:52)
[2016-11-01] MEDS: LEVAQUIN 750 MG/D5W 750 MG/150 ML IVPB IV SCH (18:54)
[2016-11-01] MEDS: OFIRMEV 1000 MG/ISOTONIC SOLN 1,000 MG/100 ML BOTTLE IV SCH (22:16)
[2016-11-01] MEDS: PRAVACHOL PO SCH (22:17)
[2016-11-01] MEDS: ENTEREG PO SCH ×2 (22:17→22:22)
[2016-11-01] MEDS: PERIDEX MT SCH (22:17)
--- NOTE | 2016-11-02 00:44 | PROGRESS NOTE ---
DATE: 11/01/2016 SUBJECTIVE: The patient underwent a hemicolectomy today, and has been back in his room for about 2 hours now. He denies any chest discomfort or dyspnea. OBJECTIVE: Vital Signs: Blood pressure 127/63, with a heart rate of 60 and regular. Neck: There is no significant jugular venous distention. Chest: Clear to auscultation. Cardiac: Reveals a regular rate and rhythm, without appreciable murmur or gallop. Oxygen saturation 99% on supplemental oxygen per nasal cannula. There is no evidence of peripheral edema. IMPRESSION: 1. Status post hemicolectomy for colon cancer. 2. Atherosclerotic coronary disease, with a history of previous inferior infarct and coronary bypass grafting approximately 5 or 6 years ago. Patient continues clinically stable from a cardiac standpoint postoperatively. RECOMMENDATIONS: 1. Continue beta-glenn as permitted by clinical situation. 2. Continue aspirin as permitted. cc: MD Tang Maddox Jr, MD
--- NOTE | 2016-11-02 01:00 | OPERATIVE NOTE ---
PROCEDURE DATE: 11/01/2016 PROCEDURE: Laparoscopic-assisted right colectomy. SURGEON: Darci Avalos MD. ORNAMENTAL IRONWORKER: Dr. Marshall, who assisted in dissection, exposure, resection, anastomosis, and closure. DESCRIPTION OF PROCEDURE: After satisfactory general endotracheal anesthesia was achieved, the abdomen was prepped and draped in a sterile fashion. We anesthetized the skin above the umbilicus, dissected down to the fascia, incised the fascia, and introduced an 11-trocar in Optiview technique. We insufflated through this trocar. Under direct visualization, inserted a 5- trocar in the mid hypogastrium, a 12-trocar in the mid epigastrium, and a 5-trocar in the right lower quadrant. We placed the patient in Trendelenburg and then airplaned him to the left. We then used the LigaSure to incised the white line of Toldt and free up the ileum and down into the pelvis. We then changed the patient's position to reverse Trendelenburg, and again used the LigaSure to go up to the hepatic flexure. We switched the camera to the epigastric trocar, and then began mobilizing the hepatic flexure. We divided the adhesions between the omentum and the fundus of the gallbladder. We divided the adhesions of the greater omentum off the transverse colon. We then divided the attachments to the hepatic flexure all the way to the falciform ligament. We identified the duodenum. We mobilized the right colon medially. At this point, felt it was time to open the patient. We then made a midline incision, to involve the epigastric trocar sites, and just went beside the umbilicus. We opened the fascia, then extended the skin incision. We were able to deliver the right colon into the wound without difficulty. We divided some attachments to the retroperitoneum a little bit to have easy freedom of the right colon into the wound. We scored the peritoneum medially to involve the ileocolic and right colic vessels. We cleaned off the ileum and divided the ileum with a BRANDON 60 blue cartridge. We cleaned off the transverse colon and divided it, again with a BRANDON 60 blue cartridge. The specimen of the lesion was noted in the mid aspect of the right colon. We then began from the ileum and divided the mesentery with the LigaSure until we reached the ileocolic vessels, then clamped and divided them and suture-ligated the stump with a 2-0 silk suture ligature. We continued up the mesentery until we got the right colic vessels, and again clamped and divided them, suture-ligating them with a 2- 0 silk suture ligature. We continued up the mesentery to where the transverse colon had been divided, and then handed off the right colon. We cleaned off the side of the transverse colon and the side of the ileum, and approximated them [id number]. Used a 3-0 silk to keep them aligned [id number]. We then placed a lap behind them, cut off the corners, and used a BRANDON 60 blue cartridge to do a [id number] stapled anastomosis. We grasped the open end of the bowel with Allis clamps, used a TA-45 blue to staple off the open end of the ileum and transverse colon. We then inverted the staple line with Lembert stitches, using 3-0 silks. We closed the mesentery with 3-0 silks. We then changed gloves at this point. We rid ourselves of the contaminated instruments. We irrigated the right side of the abdominal cavity. Hemostasis was satisfactory. A satisfactory lumen was present between the ends of the bowel. We returned everything to the abdominal cavity and laid the omentum over it. Hemostasis was satisfactory. We then injected 0.25 Marcaine with epinephrine into the peritoneum, as well as the subcutaneous tissue. We closed the peritoneum with a 2-0 chromic. We closed the fascia with running #2 Prolene, irrigated out the subcutaneous tissue, and closed the skin with kelli. A sterile dressing was applied. He tolerated it well, was sent to the recovery room in satisfactory condition. cc: MD Tang Jimenez Jr, MD Jeanette Keith, MD
[2016-11-02] MEDS: FLAGYL 250 MG/NS 250 MG/50 ML IVPB IV SCH ×4 (04:38→21:21)
[2016-11-02] MEDS: OFIRMEV 1000 MG/ISOTONIC SOLN 1,000 MG/100 ML BOTTLE IV SCH ×3 (04:38→20:59)
[2016-11-02] MEDS: PROTONIX IV SCH ×2 (04:39→15:50)
[2016-11-02] MEDS: SODIUM CHLORIDE 0.9% INJ SCH ×2 (04:39→15:50)
[2016-11-02] MEDS: ENTEREG PO SCH ×3 (06:36→20:59)
[2016-11-02 06:40] LABS: BASO% 0.1 % (0.0-0.8); HEMATOCRIT 32.2 % (42.0-52.0); HEMOGLOBIN 10.1 g/dL (14.0-18.0); IMM GRAN# 0.04 X1000 (0.0-0.04); IMM GRAN% 0.4 % (0.0-0.5); LYMPH# 0.68 X1000 (1.2-3.4); LYMPH% 6.4 % (20.5-51.1); MANUAL DIFF NEEDED? NO; MCH 25.3 PG (27-31); MCHC 31.4 g/dL (33-37); MCV 80.7 FL (81-99); MONO# 0.41 X1000 (0.11-0.59); MONO% 3.8 % (1.7-9.3); MPV 10.2 FL (7.4-10.4); NEUT% 89.3 % (42.2-75.2); PLT 219 X1000 (130-400); RBC 3.99 XMIL (4.7-6.1)
[2016-11-02] MEDS: NS 1,000 ML IV SCH ×3 (06:52→17:21)
[2016-11-02] MEDS: LOVENOX SUBQ SCH (06:53)
[2016-11-02 06:55] LABS: AGAP 11; BUN 8 mg/dL (8-22); CALCIUM 8.5 mg/dL (8.8-10.2); CHLORIDE 102 mmol/L (98-107); COSMO 278; POTASSIUM 4.8 mmol/L (3.5-5.1); SODIUM 139 mmol/L (136-145); TCO2 26 mmol/L (25-35)
[2016-11-02] MEDS: PERIDEX MT SCH ×2 (09:32→20:59)
[2016-11-02] MEDS: CARAFATE PO SCH ×3 (09:55→16:54)
[2016-11-02] MEDS: IMDUR PO SCH (09:55)
[2016-11-02] MEDS: REGLAN PO SCH (09:55)
[2016-11-02] MEDS: TOPROL XL PO SCH (09:55)
[2016-11-02] MEDS: CYANOCOBALAMIN IM SCH (09:56)
--- NOTE | 2016-11-02 11:37 | PROGRESS NOTE ---
DATE: 11/02/2016 SUBJECTIVE: The patient says he is feeling pretty well at this time. Has not had any pain medicine this morning. He underwent a laparoscopic-assisted right colectomy yesterday. OBJECTIVE: Vital Signs: Blood pressure 128/70, respirations 17, pulse 60, temperature 97.8 degrees Fahrenheit. HEENT: Normocephalic. EOMs intact. PERRLA. Throat clear. Lungs: Clear to auscultation and percussion, without rhonchi, rales, or wheezes. Heart: Regular rate rhythm, without murmurs, gallops, or friction rubs. Abdomen: Soft. Mild tenderness from the surgery. Decreased bowel sounds at this point. Neurological: Intact grossly. PATHOLOGY: Pathology report from initial biopsy did show adenocarcinoma that was invasive and moderately well differentiated. PLAN: Continue care. cc: Tang Hernandez Jr, MD
[2016-11-02] MEDS: LEVAQUIN 750 MG/D5W 750 MG/150 ML IVPB IV SCH (16:53)
--- NOTE | 2016-11-02 17:00 | PROGRESS NOTE ---
DATE: 11/02/2016 SUBJECTIVE: Patient continues without chest discomfort or dyspnea. OBJECTIVE: Vital Signs: Blood pressure 130/68, heart rate 60 and regular. Neck: There is no significant jugular venous distention. Chest: Clear to auscultation. Cardiac Exam: Was a regular rate and rhythm without appreciable murmur or gallop. There is no evidence of peripheral edema. IMPRESSION: 1. Status post hemicolectomy for colon cancer. Patient continues stable from a cardiovascular standpoint, postoperative day #1. 2. Atherosclerotic coronary disease with history of previous inferior infarction and coronary bypass grafting approximately 5 or 6 years ago. RECOMMENDATIONS: 1. Continue beta glenn, and aspirin as permitted/tolerated. 2. Will see further on an as needed basis. cc: MD Tang Maddox Jr, MD
[2016-11-02] MEDS: PRAVACHOL PO SCH (20:59)
[2016-11-03] MEDS: OFIRMEV 1000 MG/ISOTONIC SOLN 1,000 MG/100 ML BOTTLE IV SCH ×5 (01:33→20:23)
[2016-11-03] MEDS: FLAGYL 250 MG/NS 250 MG/50 ML IVPB IV SCH ×4 (03:46→23:34)
[2016-11-03] MEDS: PROTONIX IV SCH ×2 (03:46→15:36)
[2016-11-03] MEDS: SODIUM CHLORIDE 0.9% INJ SCH (03:46)
[2016-11-03] MEDS: LOVENOX SUBQ SCH (05:32)
[2016-11-03] MEDS: NS 1,000 ML IV SCH ×2 (06:13→08:52)
[2016-11-03] MEDS: TOPROL XL PO SCH (08:50)
[2016-11-03] MEDS: PERIDEX MT SCH ×2 (08:50→20:24)
[2016-11-03] MEDS: REGLAN PO SCH (08:50)
[2016-11-03] MEDS: CARAFATE PO SCH ×3 (08:50→17:43)
[2016-11-03] MEDS: IMDUR PO SCH (08:50)
[2016-11-03] MEDS: ENTEREG PO SCH ×2 (08:50→20:24)
--- NOTE | 2016-11-03 09:41 | PROGRESS NOTE ---
DATE: 11/03/2016 SUBJECTIVE: The patient feels a little bit better. He is not complaining of any pain at this time. Says he has had a few grumblings in his abdomen, has not passed any gas yet. OBJECTIVE: Vital Signs: Blood pressure is 135/69, respirations 16, pulse 60, temp 97.5 degrees Fahrenheit. HEENT: Normocephalic. EOM's intact. PERRLA. Throat clear. Lungs: Clear to auscultation and percussion without rhonchi, rales, or wheezes. Heart: Regular rate and rhythm without murmurs, gallops, or friction rubs. Abdomen: Soft, slightly distended from his surgery and a little tender. I hear occasional bowel sounds. Neurological: Exam intact grossly. ASSESSMENT: Status post right colectomy for colon cancer. Pathology report is still pending for specimen acquired at surgery. Adenocarcinoma found on biopsy. PLAN: We will continue care. cc: Tang Hernandez Jr, MD
[2016-11-03] MEDS ORDERED: NS 1,000 ML IV SCH (11:39)
[2016-11-03] MEDS: LEVAQUIN 750 MG/D5W 750 MG/150 ML IVPB IV SCH (17:43)
[2016-11-03] MEDS: PRAVACHOL PO SCH (20:24)
[2016-11-04] MEDS: OFIRMEV 1000 MG/ISOTONIC SOLN 1,000 MG/100 ML BOTTLE IV SCH ×4 (01:49→20:41)
[2016-11-04] MEDS: FLAGYL 250 MG/NS 250 MG/50 ML IVPB IV SCH ×3 (04:57→16:33)
[2016-11-04] MEDS: PROTONIX IV SCH ×2 (04:58→16:33)
[2016-11-04] MEDS: SODIUM CHLORIDE 0.9% INJ SCH ×2 (04:58→16:33)
[2016-11-04] MEDS: LOVENOX SUBQ SCH (06:46)
[2016-11-04] MEDS: REGLAN PO SCH (08:09)
[2016-11-04] MEDS: CARAFATE PO SCH ×3 (08:09→16:33)
[2016-11-04] MEDS: ENTEREG PO SCH ×2 (08:09→20:41)
[2016-11-04] MEDS: IMDUR PO SCH (08:09)
[2016-11-04] MEDS: TOPROL XL PO SCH (08:09)
[2016-11-04] MEDS: PERIDEX MT SCH ×2 (08:14→20:41)
--- NOTE | 2016-11-04 10:54 | PROGRESS NOTE ---
DATE: 11/04/2016 SUBJECTIVE: The patient says he is feeling better but hates the liquids that he has been given. He says he cannot eat them, that it makes him nauseated. He says it is just because of the taste of the liquids. OBJECTIVE: Vital Signs: Blood pressure 134/72, respirations 16, pulse 61, temperature 97.8 degrees Fahrenheit. HEENT: Normocephalic. EOMs intact. PERRLA. Throat clear. Lungs: Clear to auscultation and percussion without rhonchi, rales, or wheezes. Heart: Regular rate rhythm without murmurs, gallops, or friction rubs. Abdomen: Soft with occasional bowel sounds. Mild tenderness postoperatively as this is postoperative day #3. ASSESSMENT: Colon cancer and now status post right colectomy. PLAN: Continue care. We will try to get him something that will tolerate orally. cc: Tang Hernandez Jr, MD
[2016-11-04] MEDS: LEVAQUIN 750 MG/D5W 750 MG/150 ML IVPB IV SCH (17:39)
--- NOTE | 2016-11-04 20:18 | PROGRESS NOTE ---
DATE: 11/04/2016 SUBJECTIVE: The patient states that he feels much better today. He is ready to advance his diet even further. 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 OBJECTIVE: His examination is limited to the vitals because he was just recently placed in a chair. His blood pressure is 104/65, pulse 62, respirations 16, temperature of 97.9 degrees. OBJECTIVE DATA: New labs today. RECOMMENDATION: 1. The patient has done extremely well right hemicolectomy for an ascending colon adenocarcinoma. It should be noted that he does have colon polyps that remain in the left colon. He will need to have a repeat colonoscopy in approximately 6 months to remove the remaining benign- appearing sessile colon polyps that were found in the transverse, descending , and sigmoid colon. The patient is in agreement and fully understands. He was asked to schedule a clinic appointment within 6-8 weeks following hospital discharge. 2. He also has a Schatzki's ring with mild obstructive features. He has had intermittent dysphagia for a number of years and would like to have an EGD with dilation when he undergoes his colonoscopy in the future. In light of his recurrent symptoms, it is reasonable to consider. Therefore, we will have the patient continue Protonix 40 mg daily. He should also remain on Carafate 4 times a day for 12 weeks. We will schedule a repeat EGD in approximately 12 weeks as he is particularly symptomatic. Alternatively, one could wait until he is scheduled to undergo a colonoscopy in 6 months. We will base our decision on his clinical presentation when he returns to clinic for followup. 3. We will sign off at this time. We will monitor the pathology results from his right colon resection. 4. Have the patient return to clinic in 6-8 weeks to assess interval progress. cc: MD Tang Delgado Jr, MD MTDD
[2016-11-04] MEDS: PRAVACHOL PO SCH (20:41)
[2016-11-05] MEDS: FLAGYL 250 MG/NS 250 MG/50 ML IVPB IV SCH ×5 (00:23→23:46)
[2016-11-05] MEDS: OFIRMEV 1000 MG/ISOTONIC SOLN 1,000 MG/100 ML BOTTLE IV SCH ×4 (02:16→19:51)
[2016-11-05] MEDS: LOVENOX SUBQ SCH (05:32)
[2016-11-05] MEDS: SODIUM CHLORIDE 0.9% INJ SCH ×2 (05:32→17:40)
[2016-11-05] MEDS: PROTONIX IV SCH ×2 (05:32→17:40)
[2016-11-05] MEDS: ENTEREG PO SCH ×2 (08:32→19:51)
[2016-11-05] MEDS: IMDUR PO SCH (08:32)
[2016-11-05] MEDS: TOPROL XL PO SCH (08:33)
[2016-11-05] MEDS: PERIDEX MT SCH ×2 (08:33→19:51)
[2016-11-05] MEDS: REGLAN PO SCH (08:33)
[2016-11-05] MEDS: CARAFATE PO SCH ×3 (08:33→17:41)
--- NOTE | 2016-11-05 12:05 | PROGRESS NOTE ---
DATE: 11/05/2016 SUBJECTIVE: The patient is feeling better. We did find him something to eat; now he has moved up to a soft diet. Has not had a bowel movement or passed gas yet. OBJECTIVE: Vital Signs: Blood pressure 138/76, respirations 20, pulse 59, temperature 98.5 degrees Fahrenheit. HEENT: Normocephalic. EOM's intact. PERRLA. Throat clear. Lungs: Clear to auscultation and percussion without rhonchi, rales, or wheezes. Heart: Regular rate rhythm without murmurs, gallops, or friction rubs. Abdomen: Soft, but slightly distended postoperatively. He has more active bowel sounds today than he did yesterday. Hopefully with his eating, his bowels will start moving. Neurological: Exam intact grossly. ASSESSMENT: Colon cancer. PLAN: We will have physical therapy work with him today, perhaps some tomorrow depending on what surgery says. cc: Tang Hernandez Jr, MD
[2016-11-05] MEDS: LEVAQUIN 750 MG/D5W 750 MG/150 ML IVPB IV SCH (19:01)
[2016-11-05] MEDS: PRAVACHOL PO SCH (19:51)
[2016-11-06] MEDS: ENTEREG PO SCH ×2 (06:44→08:57)
[2016-11-06] MEDS: PRAVACHOL PO SCH (06:45)
[2016-11-06] MEDS: OFIRMEV 1000 MG/ISOTONIC SOLN 1,000 MG/100 ML BOTTLE IV SCH ×2 (06:45→07:38)
[2016-11-06] MEDS: PERIDEX MT SCH ×2 (06:45→08:58)
[2016-11-06] MEDS: FLAGYL 250 MG/NS 250 MG/50 ML IVPB IV SCH ×2 (06:55→08:54)
[2016-11-06] MEDS: LOVENOX SUBQ SCH (06:55)
[2016-11-06] MEDS: PROTONIX IV SCH (06:55)
[2016-11-06 08:08] VITALS: BP 119/65
[2016-11-06] MEDS: IMDUR PO SCH (08:57)
[2016-11-06] MEDS: CARAFATE PO SCH (08:57)
[2016-11-06] MEDS: TOPROL XL PO SCH (08:58)
[2016-11-06] MEDS: REGLAN PO SCH (08:58)
--- NOTE | 2016-11-06 17:58 | DISCHARGE SUMMARY ---
ADMISSION DATE: 10/28/2016 DISCHARGE DATE: 11/06/2016 CONSULTATIONS: 1. Dr. Tony, Gastroenterology. 2. Dr. Darci Avalos, Surgery. 3. Dr. Cano, Cardiology. 4. Dr. Black, Oncology. FINAL DIAGNOSES: 1. Colon cancer. 2. Rectal bleeding. SECONDARY DIAGNOSES: 1. Coronary artery disease. 2. Hypertension. 3. Hyperlipidemia. 4. Status post coronary artery bypass graft. 5. Status post pacemaker placement. DISCHARGE INSTRUCTIONS: The patient will be discharged home on his regular medications plus Carafate 1 g q.i.d. for 12 weeks, Protonix 40 mg daily for 12 weeks. He will have followup with Oncology, Surgery, and see GI in 6-8 weeks. I will see him back in the next week. PRESENT ILLNESS: The patient is an 80-year-old white male who comes in with rectal bleeding. Colonoscopy was done which showed tumor in the ascending colon. This was adenocarcinoma, invasive, moderately differentiated. The patient underwent right hemicolectomy. The path report revealed adenocarcinoma, invasive, that went through the muscularis and into the adipose tissue. Lymph nodes were negative. He has tolerated the surgery well. He has had a bowel movement x3. He did have a Schatzki ring on EGD. That is why he was placed on Protonix and Carafate. PHYSICAL EXAMINATION: Vital signs: Blood pressure 119/65, respirations 20, pulse 62, temperature 98.5 degrees Fahrenheit. HEENT: He is normocephalic. Extraocular movements intact. DAPHNEY. Throat clear. Lungs: Clear to auscultation and percussion without rhonchi, rales, or wheezes. Heart: Regular rate rhythm without murmurs, gallops, or friction rubs. Abdomen: Soft. He is postop day 5. Active bowel sounds. Mild tenderness from his surgery. Cardiology did evaluate him prior to surgery. cc: Tang Hernandez Jr, MD
== END 2016-11-06 09:50 | disposition home or self-care (01) ==
LOC: ED 19:34 → SUATTDRO 10-28 03:38 → EDIPHOLD 10-28 03:38 → 4N 10-28 10:21
PROVIDERS: ADMIT Emergency Medicine; ATTEND Emergency Medicine

== ENCOUNTER 2018-07-03 08:58 | Inpatient (IN) ==
[2018-07-03] MEDS ORDERED: ASPIRIN PO ONE (09:06)
[2018-07-03] MEDS ORDERED: LASIX IV ONE (09:30)
[2018-07-03] MEDS ORDERED: NITROGLYCERIN 50 MG/D5W 50 MG/250 ML IV.SOLN IV SCH (09:30)
[2018-07-03 10:23] LABS: BASO# 0.03 X1000 (0.0-0.2); BASO% 0.4 % (0.0-0.8); EOS# 0.39 X1000 (0.0-0.7); EOS% 5.4 % (0.0-10.0); HEMATOCRIT 36.5 % (42.0-52.0); HEMOGLOBIN 11.5 g/dL (14.0-18.0); LYMPH# 1.46 X1000 (1.2-3.4); LYMPH% 20.2 % (20.5-51.1); MCH 30.2 PG (27-31); MCHC 31.5 g/dL (33-37); MCV 95.8 FL (81-99); MONO# 0.87 X1000 (0.11-0.59); MONO% 12.1 % (1.7-9.3); MPV 10.6 FL (7.4-10.4); NEUT# 4.46 X1000 (1.4-6.5); NEUT% 61.9 % (42.2-75.2); PLT 132 X1000 (130-400); RBC 3.81 XMIL (4.7-6.1); RDW 13.5 % (11.5-14.5); WBC 7.21 X1000 (4.8-10.8)
--- NOTE | 2018-07-03 10:39 | Diag Imaging Result Doc PS360 ---
CHEST-2 VIEWS - 07/03/2018 INDICATION: CHEST PAIN COMPARISON: 05/07/2017 FINDINGS: Stable chest port, sternotomy wires, and pacemaker. Stable borderline cardiomegaly. Stable chronic peripheral coarse interstitial opacities compatible with pulmonary fibrosis. No pneumothorax or pleural effusion. No new infiltrates. IMPRESSION: Pulmonary fibrosis. No change from prior. Electronically signed by Akhil Malone 07/03/2018 10:36 AM
[2018-07-03 10:53] LABS: AGAP 10; BUN 20 mg/dL (8-22); CHLORIDE 98 mmol/L (98-107); COSMO 274; CREATININE 1.1 mg/dL (0.7-1.2); ESTIMATED GFR > 60; GLUCOSE 89 mg/dL (70-104); POTASSIUM 4.4 mmol/L (3.5-5.1); SODIUM 136 mmol/L (136-145); TCO2 28 mmol/L (25-35)
[2018-07-03] MEDS ORDERED: VITAMIN D PO SCH (13:30)
[2018-07-03] MEDS ORDERED: TYLENOL PO PRN (13:44)
[2018-07-03] MEDS ORDERED: NITROGLYCERIN TOP SCH (13:45)
--- NOTE | 2018-07-03 14:19 | HISTORY AND PHYSICAL ---
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 HISTORY OF PRESENT ILLNESS: He is an 82-year-old white gentleman patient of Dr. Hernandez who came into the emergency room with chest pain. Pain is nonreproducible atypical. Associated symptoms edema of legs and elevated blood pressure. No radiation. Lasted for 30 minutes. No shortness of breath, PND, orthopnea. 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 Favian Cano. According to the ER reports EKG showed right bundle branch block. Admitted to the [facility] for rule out IN. PAST MEDICAL HISTORY: 1. Coronary artery disease. 2. Colon cancer. 3. Acid reflux disease. 4. Paroxysmal atrial fibrillation. 5. Hyperlipidemia. 6. Vitamin B12 deficiency. 7. History of colon cancer with liver metastasis. 8. Hypertension. 9. Diverticulosis. 10. Internal hemorrhoids. 11. Esophageal stricture due to reflux disease. 12. History of cholecystitis in 2016. 13. BPH. PAST SURGICAL HISTORY: Bypass surgery in 2010, pacemaker placement. Right-sided chest port. Right colectomy. Open reduction and internal fixation of the right heel fracture. Loss colonoscopy, 05/23/2018. Stable anastomotic site. MEDICATIONS: Pravastatin 40 daily, aspirin 81 mg daily, Reglan 10 p.o. b.i.d., Protonix 40 daily, Zoloft 50 daily, Colace 100 daily. Saw Mavizon 900 in the evening. B12 2000 mcg daily. Calcium 15 mg daily, vitamin D 83858 units once a week, Lasix 40 daily, metoprolol 50 p.o. b.i.d. Warfarin 1 mg daily. ALLERGIES: Not known. SOCIAL HISTORY: He is . Lives in [place]. Stopped smoking 50 years ago. No alcohol. Living will. Full code. FAMILY HISTORY: Unremarkable. REVIEW OF SYSTEMS: HEENT: No headache. No vision problems. Cataracts removed on the right side. No sore throat. Neck: No goiter. No lymphadenopathy. No bruit. Cardiopulmonary: Chest pain atypical. No shortness of breath, PND, orthopnea. Gastrointestinal: No altered bowel habits. Extremities: Swelling of feet. Neurological: No neurological symptoms or weakness. No seizures. PHYSICAL EXAMINATION: VITAL SIGNS: Blood pressure is running high. Afebrile. Vitals are stable. Currently, he is pain free. HEENT: Atraumatic, normocephalic. Pupils equal, react to light. Tongue is midline. NECK: Supple. CHEST: Bilateral air entry. HEART: Sounds are regular. Port present on the right side of the chest. Pacemaker was seen on the left side of the chest. ABDOMEN: Belly is soft, nontender. Good bowel sounds. He is in diapers. EXTREMITIES: 3+ pedal edema in both legs. NEUROLOGIC: No obvious neurological deficits. INVESTIGATIONS: CBC: White cell count 7.2, hematocrit 36, platelets 132,000. SMA 7 is normal. Cardiac enzymes were normal. ProBNP 4000. Chest x-ray: Pacemaker on the left side. Port on the right side. Prior bypass surgery, cardiomegaly, slightly rotated, otherwise stable. ASSESSMENT AND PLAN: 1. An 82-year-old white male admitted to the hospital with status post bypass since 2010, pacemaker rhythm, right bundle. Admitted to the hospital for chest pain. Atypical pain basically admitted to the hospital with aspirin and nitroglycerin 7 rule out IN. If he rules out, we will do an outpatient workup. 2. Elevated blood pressures and edema. We will give IV Lasix. 3. Metastatic colon cancer under the care of Dr. Black, status post right hemicolectomy. 4. Reconcile home medications. 5. Deep venous thrombosis prophylaxis with Lovenox. 6. Gastrointestinal prophylaxis with IV p.o. Protonix and will follow up. cc: MD Tang Watts Jr, MD
[2018-07-03 16:20] LABS: INR 1.02; PROTIME 14.2 Seconds (11.0-16.0)
[2018-07-03] MEDS: NITROGLYCERIN TOP SCH ×2 (16:44→21:56)
--- NOTE | 2018-07-03 17:08 | PROVIDER DOCUMENTATION ---
This chart was entered by Ashtyn Merida Scribe, acting as scribe for Giana Jeffrey MD. HPI-Chest Pain - General Chief Complaint: Chest Pain Stated Complaint: CP LAST NIGHT/ HIGH BP Time Seen by Provider: 07/03/18 09:02 Source: patient Allergies/Adverse Reactions: Patient Allergies Allergy/AdvReac Type Severity Reaction Status Date / Time No Known Allergies Allergy Verified 07/03/18 10:08 Home Medications: Home Medication List Medication Instructions Recorded Confirmed Last Taken Type Aspirin 81 mg PO QAM 10/24/13 07/03/18 05/18/18 History PRAVAstatin [Pravachol] 40 mg PO QPM 10/24/13 07/03/18 05/22/18 16:30 History Metoclopramide [Reglan] 10 mg PO BID 10/27/16 07/03/18 05/22/18 16:30 History Pantoprazole [Protonix] 1 tab PO QAM 12/29/16 07/03/18 05/22/18 08:00 History Docusate Sodium [Colace] 100 mg PO QHS 03/30/17 07/03/18 05/22/18 16:30 History Saw Coulter 900 mg PO QAM 03/30/17 07/03/18 05/22/18 08:00 History Sertraline [Zoloft] 50 mg PO QPM 03/30/17 07/03/18 05/22/18 16:30 History Calcium 1,500 mg PO DAILY 11/02/17 07/03/18 05/22/18 16:30 History Cyanocobalamin (Vitamin B-12) 2,500 mcg PO DAILY 11/02/17 07/03/18 05/22/18 16: 30 History [Vitamin B12] Garlic Extract [Garlipure] 1,000 mg PO DAILY 11/02/17 07/03/18 05/22/18 08:00 History Ergocalciferol (Vitamin D2) 50,000 unit PO Q7D 05/22/18 07/03/18 05/16/18 History [Vitamin D2] Furosemide [Lasix] 40 mg PO DAILY 05/22/18 07/03/18 05/22/18 08:00 History Metoprolol [Lopressor] 50 mg PO BID 11/06/2707/03/18 05/23/18 07:00 History Psyllium Husk/Aspartame [Metamucil 1 tsp PO BID 05/22/18 07/03/18 05/21/18 History Powder] Warfarin [Coumadin] 1 mg PO DAILY 05/22/18 07/03/18 05/18/18 History - History of Present Illness-CP Nature of Presenting Problem: 82yom with hx coronary artetry disease, HTN, bypass surgery in 2011, and colon cancer c/o chest pain suddenly last night for about 30 minutes. He reports 8/10 pain. He denies dizziness, lightheadedness, diaphoresis, fever, chills, n,v,d, and sob. Location: reports: substernal Chest Pain Radiation: reports: no radiation Quality of Pain: reports: other (patient could not describe the pain) Severity in ED: moderate Onset/Duration: last night Context/Activities at Onset: reports: none Modifying Factors: improves with: nothing Associated Symptoms: denies: abdominal pain, diaphoresis, nausea, shortness of breath, vomiting Similar Symptoms Previously?: Yes Recently Seen Here or By Another Healthcare Provider: Yes Review of Systems - Adult - REVIEW OF SYSTEMS - ADULT Constitutional: denies: chills, fever Eyes: denies: discharge, dry eyes Ears, Nose, Mouth & Throat: denies: ear discharge, ear pain Cardiovascular: reports: chest pain (substernal). denies: palpitations Respiratory: denies: cough, shortness of breath Gastrointestinal: denies: abdominal pain, diarrhea, nausea, vomiting Genitourinary: denies: dysuria, hematuria Musculoskeletal: denies: back pain, muscle aches, muscle weakness Integumentary: reports: no symptoms reported Neurological: denies: dizziness/vertigo, headache/migraines Psychiatric: reports: no symptoms reported Endocrine: reports: no symptoms reported Hematologic/Lymphatic: reports: no symptoms reported Allergic/Immunologic: reports: no symptoms reported All Other Systems: Reviewed and Negative Past History - Adult - PAST MEDICAL HISTORY-ADULT Review of Records: reports: Old Records Reviewed, Nursing Assessment Review, Medications Reviewed Major Childhood Illnesses: reports: denies history Cardiovascular: reports: CAD, HTN, hyperlipidemia, [place], pacemaker Respiratory: reports: denies history Gastrointestinal: reports: cancer (colon), GERD Obstetrical/Gynecological: reports: denies history Genitourinary: reports: cancer (Colon) Musculoskeletal: reports: denies history Neurological: reports: denies history Endocrine/Immune: reports: denies history Other Conditions: reports: denies history - PRIOR SURGERIES/PROCEDURES Surgical/Procedure History: reports: CABG, bowel surgery (Bowel Resection) - IMMUNIZATION STATUS Childhood Immunizations: See Nurse Assessment Flu Vaccine: See Nurse Assessment - FAMILY HISTORY Family History: reviewed, not pertinent - SOCIAL HISTORY Smoking: other (former) Substance Use: denies Living Situation: family Physical Exam-General - PHYSICAL EXAM-ADULT Initial Vital Signs Reviewed: Yes - CONSTITUTIONAL General Appearance: alert, no apparent distress - EYES Eyes: PERRL/EOMI, pink conjunctivae - NECK Neck: non-tender, supple - RESPIRATORY Respiratory: crackles (bilateral). negative: wheezing - CARDIOVASCULAR Cardiovascular: regular rate, rhythm, no murmur - MUSCULOSKELETAL Extremity: normal range of motion, non-tender, pedal edema (+3 bilateral lower extremities) - SKIN Integumentary: normal color, warm/dry - NEUROLOGIC Neurologic: grossly normal, no motor/sensory deficits - PSYCHIATRIC Psych/Mental Status: normal mood/affect, normal thought content, normal thought process, oriented x 3 Progress - PLAN OF CARE/RESULTS Progress/Plan/Lab Results: Vital Signs - 8 hr 07/03/18 09:07 07/03/18 09:16 07/03/18 09:20 Temperature 98.4 F Pulse Rate 60 60 60 Respiratory Rate 18 14 12 Blood Pressure 184/102 O2 Sat by Pulse Oximetry 100 07/03/18 09:28 07/03/18 09:30 07/03/18 09:49 Temperature Pulse Rate 60 60 60 Respiratory Rate 16 12 Blood Pressure 183/99 O2 Sat by Pulse Oximetry 07/03/18 09:50 07/03/18 10:00 07/03/18 10:02 Temperature Pulse Rate 60 60 60 Respiratory Rate Blood Pressure 185/96 O2 Sat by Pulse Oximetry 07/03/18 10:10 07/03/18 10:20 07/03/18 10:30 Temperature Pulse Rate 60 60 60 Respiratory Rate Blood Pressure O2 Sat by Pulse Oximetry 07/03/18 10:46 07/03/18 10:49 07/03/18 11:01 Temperature Pulse Rate 60 60 60 Respiratory Rate Blood Pressure 176/98 177/102 190/92 O2 Sat by Pulse Oximetry Laboratory Results - last 24 hr 07/03/18 07/03/18 07/03/18 10:02 10:02 10:02 WBC 7.21 RBC 3.81 L Hgb 11.5 L Hct 36.5 L MCV 95.8 MCH 30.2 MCHC 31.5 L RDW Std Deviation 13.5 Plt Count 132 MPV 10.6 H Neut % (Auto) 61.9 Lymph % (Auto) 20.2 L Gilliam % (Auto) 12.1 H Eos % (Auto) 5.4 Baso % (Auto) 0.4 Neut # (Auto) 4.46 Lymph # (Auto) 1.46 Gilliam # (Auto) 0.87 H Eos # (Auto) 0.39 Baso # (Auto) 0.03 Sodium 136 Potassium 4.4 Chloride 98 Carbon Dioxide 28 Anion Gap 10 BUN 20 Creatinine 1.1 Estimated GFR/1.73 m2 > 60 BUN/Creatinine Ratio 18 Glucose 89 Calculated Osmolality 274 Calcium 9.0 Troponin T < 0.010 Hee-S-Dornhzfbjbf Pept 07/03/18 10:02 WBC RBC Hgb Hct MCV MCH MCHC RDW Std Deviation Plt Count MPV Neut % (Auto) Lymph % (Auto) Gilliam % (Auto) Eos % (Auto) Baso % (Auto) Neut # (Auto) Lymph # (Auto) Gilliam # (Auto) Eos # (Auto) Baso # (Auto) Sodium Potassium Chloride Carbon Dioxide Anion Gap BUN Creatinine Estimated GFR/1.73 m2 BUN/Creatinine Ratio Glucose Calculated Osmolality Calcium Troponin T Zwj-D-Dfhruokhgna Pept 4458 H Orders Category Date Time Status Admit - [facility] Routine AdmDCTranf 07/03/18 10:59 Active cxr [CHEST-2 VIEWS] [RAD] Stat Exams 07/03/18 09:07 Completed BASIC METABOLIC PANEL [CHEM] Stat Lab 07/03/18 10:02 Completed BNP [PRO B-NATRIURETIC PEPTIDE] Stat Lab 07/03/18 10:02 Completed CBC WITH ELECTRONIC DIFF [HEME] Stat Lab 07/03/18 10:02 Completed TROPONIN T Stat Lab 07/03/18 10:02 Completed Aspirin Med 07/03/18 09:06 Discontinued 325 mg PO NOW ONE Furosemide [Lasix] Med 07/03/18 09:30 Discontinued 60 mg IV NOW ONE Nitroglycerin 50 mg/D5w Med 12/24/18 09:30 Discontinued 50 mg in 250 ml IV As Directed EKG [EKG] Stat Ther 07/03/18 09:07 Ordered Transfer/Admit Order [TRANSFER] Routine Transfer 07/03/18 10:59 Completed The patient's HEART Score is 6. Blood pressure at 10:30 L arm: 176/98 and R arm : 177/102. Result Diagrams: 07/03/18 10:02 07/03/18 10:02 - EKG 1 Time of EKG reading by physician:: 09:02 EKG Read and Signed by:: Giana Aguirre EKG Interpretation (*Must complete 3 of following elements*): Abnormal Rate: 60 Rhythm: Atrial-paced rhythm w prolonged AV conduction [place]: left QRS: RBB ST Wave: non-specific ST changes (consider lateral ischemia) Comments: inferior infarct - XRAY 1 XRAY Study: Chest Impression: Abnormal (FINDINGS: Stable chest port, sternotomy wires, and pacemaker. Stable borderline cardiomegaly. Stable chronic peripheral coarse interstitial opacities compatible with pulmonary fibrosis. No pneumothorax or pleural effusion. No new infiltrates. IMPRESSION: Pulmonary fibrosis. No change from prior.) - CONSULTS/PCP/HOSPITALIST Notification #1 *Consult/PCP/Hospitalist*: Dr. Donnelly Time Discussed: 10:52 Consult Disposition: Admit (Accepted.) Departure - Departure Date of Disposition Decision: 07/03/18 Time of Disposition Decision: 10:52 DIAGNOSIS: Chest pain Qualifiers: Chest pain type: other chest pain Qualified Code(s): R07.89 - Other chest pain ; R07.8 - Other chest pain Disposition: ADMITTED INPATIENT 09 Certified Medical Emergency: Emergent Condition: Stable - Critical Care Note This patient required my direct & personal management of CC.: No Attestation - Physician/ PAULINA Attestation Patient care was provided by Advanced Practice Provider:: No The physician spent face to face time with patient:: Yes Advanced Practice Provider documentation review:: Supervising physician onsite and consulted in the evaluation and care of this patient. The physician did have a face to face encounter with the patient. This chart was documented by the indicated scribe, (Ashtyn Merida Scribe) and accurately reflects the services I performed and decisions made by me, Giana Jeffrey MD, as attested by the provider's signature.
[2018-07-03] MEDS ORDERED: PRAVACHOL PO SCH (21:00)
[2018-07-03] MEDS ORDERED: ASPARTAME PO SCH (21:00)
[2018-07-03] MEDS ORDERED: PSYLLIUM HUSK PO SCH (21:00)
[2018-07-03] MEDS ORDERED: ZOLOFT PO SCH (21:00)
[2018-07-03] MEDS ORDERED: LOPRESSOR PO SCH (21:00)
[2018-07-03] MEDS ORDERED: COLACE PO SCH (21:00)
[2018-07-03] MEDS: METAMUCIL POWDER PACKET PO SCH (21:56)
[2018-07-03] MEDS: COLACE PO SCH (21:57)
[2018-07-03] MEDS: ZOLOFT PO SCH (21:57)
[2018-07-03] MEDS: COUMADIN PO SCH (21:57)
[2018-07-03] MEDS: PRAVACHOL PO SCH (21:57)
[2018-07-03] MEDS: LOPRESSOR PO SCH (21:58)
[2018-07-04] MEDS: NITROGLYCERIN TOP SCH ×4 (03:11→21:22)
[2018-07-04 03:59] LABS: ALLEN TEST YES; BE 7.7 mmoll (-3.0-3.0); BLOOD TYPE ARTERIAL; HCO3-(ACT) 30.9 mmoll (20.0-26.0); METHB 0.8 % (0.0-1.5); O2(CT) 13.2 mL/dL (15.0-23.0); O2HB 93.6 % (95.0-99.0); PCO2(98.6) 47 mmHg (35-45); PO2(98.6) 72 mmHg (60-100); SAMPLE BLOOD; SAO2 96.6 % (95.0-100.0); pH(98.6) 7.45 (7.35-7.45)
[2018-07-04 04:04] LABS: MODALITY ROOM AIR
[2018-07-04 05:38] LABS: BASO# 0.04 X1000 (0.0-0.2); BASO% 0.6 % (0.0-0.8); EOS# 0.47 X1000 (0.0-0.7); EOS% 6.9 % (0.0-10.0); HEMATOCRIT 36.5 % (42.0-52.0); HEMOGLOBIN 11.5 g/dL (14.0-18.0); LYMPH# 1.72 X1000 (1.2-3.4); LYMPH% 25.1 % (20.5-51.1); MCH 30.2 PG (27-31); MCHC 31.5 g/dL (33-37); MCV 95.8 FL (81-99); MONO# 0.69 X1000 (0.11-0.59); MONO% 10.1 % (1.7-9.3); MPV 10.4 FL (7.4-10.4); NEUT# 3.93 X1000 (1.4-6.5); NEUT% 57.3 % (42.2-75.2); PLT 140 X1000 (130-400); RBC 3.81 XMIL (4.7-6.1); RDW 13.6 % (11.5-14.5); WBC 6.85 X1000 (4.8-10.8)
[2018-07-04 05:57] LABS: CALCIUM 8.8 mg/dL (8.8-10.2); CREATININE 1.2 mg/dL (0.7-1.2); POTASSIUM 4.3 mmol/L (3.5-5.1)
[2018-07-04] MEDS: PROTONIX PO SCH (06:26)
[2018-07-04] MEDS: TYLENOL PO PRN (07:11)
[2018-07-04] MEDS: LASIX IV SCH (08:43)
[2018-07-04] MEDS: METAMUCIL POWDER PACKET PO SCH ×2 (08:43→21:21)
[2018-07-04] MEDS: TUMS EXTRA STRENGTH PO SCH (08:43)
[2018-07-04] MEDS: LOPRESSOR PO SCH ×2 (08:44→21:22)
[2018-07-04] MEDS: ASPIRIN PO SCH (08:44)
[2018-07-04] MEDS: VITAMIN B-12 SL SCH (08:44)
[2018-07-04] MEDS ORDERED: COUMADIN PO SCH (09:00)
[2018-07-04] MEDS ORDERED: CALCIUM 1500 MG PO SCH (09:00)
[2018-07-04] MEDS ORDERED: NON-FORMULARY MED (Cyanocobalamin (Vitamin B-12) [Vitamin B12] 2,500 MCG) PO SCH (09:00)
[2018-07-04] MEDS ORDERED: PROTONIX PO SCH (09:00)
[2018-07-04] MEDS ORDERED: ASPIRIN PO SCH (09:00)
[2018-07-04] MEDS ORDERED: SAW PALMETTO 900 MG PO SCH (09:00)
[2018-07-04] MEDS ORDERED: LOVENOX SUBQ SCH (09:00)
--- NOTE | 2018-07-04 13:07 | PROGRESS NOTE ---
DATE: 07/04/2018 SUBJECTIVE: Pain is currently pain free. Had a swelling. Blood pressure is still running high and the family at the bedside. Options are discussed about working up for the heart disease. In the meantime, he had a swelling, not able to walk. Positive D-dimer. Rule out venous thromboembolism. Patient is currently with no shortness of breath. No chest pain. OBJECTIVE: Vital Signs: On exam, temperature is 97.5, pulse is 60. Blood pressure is 160/97, satting 95% on room air. HEENT: Exam within normal limits. Neck: Supple. Port was seen on the right side. Pacemaker on the left side. Heart and Lungs: Bilateral air entry. Not tachycardic. Abdomen: Belly is soft, nontender. Good bowel sounds. Extremities: 1+ pedal edema. Neurological: No obvious neurological deficits. LABS: Labs as follows: CBC: White cell count 6.8, hematocrit 36, platelets 140. D-dimer 2.75. PO2 is 70 on room air. SMA 7 was normal. Cardiac enzymes were normal. ProBNP 4000. CEA levels 1.7. ASSESSMENT AND PLAN: 1. Chest pain. Positive D-dimer. Rule out myocardial infarction by serial cardiac enzymes. Rule out venous thromboembolism. We will get venous Doppler studies today. If they are negative, then consider questionable CT pulmonary angiogram that is clinically suspicious and is very low. 2. Continue deep vein thrombosis prophylaxis with Lovenox. The patient is already on warfarin. 3. Ischemic heart disease status post bypass since [address] Cano is director child. Family wants to stress test while he is in the hospital. 4. History of colon cancer under the care of Dr. Black on Avastin treatment. Follow up on CEA levels were normal. Continue present medical therapy. LEVEL OF DOCUMENTATION: 25 minutes. cc: MD Tang Watts Jr, MD
[2018-07-04] MEDS: COUMADIN PO SCH (21:21)
[2018-07-04] MEDS: ZOLOFT PO SCH (21:21)
[2018-07-04] MEDS: PRAVACHOL PO SCH (21:21)
[2018-07-04] MEDS: COLACE PO SCH (21:22)
--- NOTE | 2018-07-04 22:39 | Extremity Venous Study ---
PROCEDURE NAME: Venous U/S Bilateral Legs - 07/04/2018 Bilateral lower extremity venous duplex and color flow imaging study using the GE vivid E9 ultrasound System with a 9L-D transducer . REFERRING PHYSICIAN: Dr. Donnelly. 82-year-old male. HOSTEL PARENT: Elicia. INDICATIONS: Elevated D-dimer. FINDINGS: The right common femoral vein and its branches, deep and superficial femoral veins were satisfactorily imaged. They had flow through them and were compressible. Right popliteal vein, deep veins below the right knee were all compressible and had flow through them. Superficial veins the right lower extremity were compressible throughout their length. The left common femoral vein and its branches, deep and superficial femoral veins were also satisfactorily imaged. They had flow through them and were compressible. Left popliteal vein, deep veins below the left knee were all compressible and had flow through them. Superficial veins the left lower extremity were compressible throughout their length. INTERPRETATION: No evidence of acute deep or superficial venous thrombosis of the bilateral lower extremities. cc: MD Melvin Cárdenas MD Roger H. Moss Jr, MD
[2018-07-05] MEDS: NITROGLYCERIN TOP SCH ×4 (02:02→21:27)
[2018-07-05] MEDS: PROTONIX PO SCH (06:08)
--- NOTE | 2018-07-05 07:07 | EKG Report ---
Test Performed on : 07/03/2018 09:00:58 AM Test Reason : CP Blood Pressure : / mmHG Vent. Rate : 060 BPM Atrial Rate : 060 BPM P-R Int : 222 ms QRS Dur : 142 ms QT Int : 478 ms P-R-T Axes : -10 -33 005 degrees QTc Int : 478 ms Atrial-paced rhythm with prolonged AV conduction Left axis deviation Right bundle branch block Inferior infarct (cited on or before 02-NOV-2017) T wave abnormality, consider lateral ischemia Abnormal ECG When compared with ECG of 03-JUL-2018 08:59, (Unconfirmed) No significant change was found Unconfirmed Result
[2018-07-05] MEDS: METAMUCIL POWDER PACKET PO SCH ×2 (08:49→21:27)
[2018-07-05] MEDS: VITAMIN B-12 SL SCH (08:49)
[2018-07-05] MEDS: ASPIRIN PO SCH (08:49)
[2018-07-05] MEDS: VITAMIN D PO SCH (08:49)
[2018-07-05] MEDS: TUMS EXTRA STRENGTH PO SCH (08:49)
[2018-07-05] MEDS: LOVENOX SUBQ SCH (08:49)
[2018-07-05] MEDS: LOPRESSOR PO SCH ×2 (08:50→21:27)
[2018-07-05] MEDS: LASIX IV SCH (08:50)
--- NOTE | 2018-07-05 09:10 | PROGRESS NOTE ---
DATE: 07/05/2018 SUBJECTIVE: I am covering this patient who sees Dr. Hernandez as Dr. Hernandez is out of town. The patient has had no more chest pains. No particular shortness of breath. No cough. He has been nonambulatory for a week prior to hospitalization, had the chest pains in the bed around 1 a.m. prior to admission. OBJECTIVE: Vital Signs: Afebrile, pulse 59, respirations 18, blood pressure 182/93, O2 saturation on 2 L is 92%. CV: RRR without murmur. Lungs: Distant breath sounds, CTA. Abdomen: Soft, nontender. Extremities: 2+ lower extremity edema. No calf tenderness or cords. Venous Dopplers lower extremities are negative. LABORATORY: Creatinine 1.2, potassium 4.3, sodium 143. CKs and troponins are negative. ProBNP is elevated at the 4400 range. CEA level 1.7. White count 6.8, hemoglobin 11.5, platelets 140,000. Chest x-ray shows pulmonary fibrosis changes. No change from prior. ASSESSMENT: 1. Chest pains. 2. Coronary artery disease. 3. Colon cancer, on chemotherapy per Dr. Black. 4. History of paroxysmal atrial fibrillation number. 5. Gastroesophageal reflux disease. 6. Hyperlipidemia. 7. B12 deficiency. 8. Colon cancer with liver metastasis. 9. Hypertension. 10. Diverticulosis. 11. Internal hemorrhoids. 12. Remote history of esophageal stricture. 13. Benign prostatic hypertrophy. PLAN: We will go ahead and check CT pulmonary angiogram as he certainly has risk factors for pulmonary thromboembolism. We will continue the low-dose Coumadin for prophylaxis of right-sided port clot. Continue prophylaxis of DVT with low-dose Lovenox. Continue aspirin 81 mg daily regarding his CAD. We will get Dr. Cano to see the patient as he follows him for his heart disease as well. Continue IV Lasix, topical nitroglycerin paste. We will follow the patient through the day. Await CT pulmonary angiogram. cc: MD Tang Bob Jr, MD
[2018-07-05 11:00] LABS: INR 1.1; PROTIME 15.1 Seconds (11.0-16.0)
--- NOTE | 2018-07-05 11:03 | EKG Report ---
Test Performed on : 07/05/2018 10:27:23 AM Test Reason : chest pain Blood Pressure : / mmHG Vent. Rate : 060 BPM Atrial Rate : 060 BPM P-R Int : 176 ms QRS Dur : 138 ms QT Int : 498 ms P-R-T Axes : 000 222 083 degrees QTc Int : 498 ms Normal sinus rhythm. Right bundle branch block Inferior infarct (cited on or before 02-NOV-2017) T wave abnormality, consider lateral ischemia Abnormal ECG When compared with ECG of 03-JUL-2018 09:00, (Unconfirmed) Sinus rhythm. has replaced Electronic atrial pacemaker Questionable change in initial forces of Inferior leads Nonspecific T wave abnormality, improved in Inferior leads Confirmed by Arturo BLANCAS, Luis Nagy ([id number]) on 07/07/2018 8:47:13 AM
--- NOTE | 2018-07-05 12:20 | CARDIOLOGY CONSULTATION ---
DATE: 07/05/2018 HISTORY OF PRESENT ILLNESS: An 82-year-old, gentleman with a known history of coronary artery disease, coronary artery bypass grafting. He came to the emergency room with chest discomfort. At the time of my examination, the patient was pain free. Patient describes his symptoms as a mild pressure-like sensation. There is no associated shortness of breath. There are no palpitations. There is no dizziness or syncope. He has also colon cancer with liver metastasis, undergoing chemotherapy. He was noted to have an elevated D-dimer of 2.75 and is going to undergo a CT scan to rule out pulmonary embolism. REVIEW OF SYSTEMS: A 14-point review of systems was done. System: There is no dysuria or hematuria. Respiratory System: There is no history of cough or hemoptysis. GI System: There is no history of nausea, vomiting, or diarrhea. There is no history of hematemesis or melena. PAST MEDICAL HISTORY: 1. Coronary artery disease, myocardial infarction. 2. Status post coronary artery bypass grafting with saphenous vein graft to LAD, saphenous vein graft to diagonal, saphenous vein graft to RCA, and saphenous vein graft to right ventricular branch of RCA, and PFO closure on 02/07/2012 at [facility]. 3. Permanent pacemaker implantation, [employer] device. 4. Hypertension. 5. Hyperlipidemia. 6. Sick sinus syndrome. 7. Colon cancer with liver metastasis. 8. Diverticulosis. 9. Esophageal stricture. 10. BPH. 11. Hip replacement. 12. History of paroxysmal atrial fibrillation. SOCIAL HISTORY: He is . Retired. Lives alone. There is no history of tobacco or alcohol abuse. FAMILY HISTORY: Noncontributory. ALLERGIES: He is not known to be allergic to any medications. MEDICATIONS: His current home medications include metoprolol 50 mg a day, Lasix 40, Coumadin as directed, aspirin 81 mg a day, Pravachol 40, Protonix 40, metoclopramide, sertraline, Colace, Metamucil, Marinol, calcium carbonate. PHYSICAL EXAMINATION: Vital Signs: Blood pressure was 170/86. Cardiovascular System: Normal jugular venous pressure. There was no thyromegaly. There was no carotid bruit. First and second heart sounds were heard. There was a soft systolic murmur. Respiratory System: Normal air entry. There were no crepitations or rhonchi. Abdomen: Soft, nontender. There was no guarding or rigidity. Bowel sounds were heard. Central Nervous System: Alert, oriented, moving all 4 extremities. Extremities: Examination of the extremities revealed pitting pedal edema. LABORATORY EXAMINATION: Sodium 143, potassium 4.3, BUN 24, creatinine 1.2. Cardiac enzymes negative. ProBNP elevated at 4892. INR 1.02. D-dimer 2.75. Hemoglobin 11.5, hematocrit 36.5, WBCs 6.85, platelet count of 140,000. Venous Dopplers of lower extremities were negative. Electrocardiogram revealed a paced rhythm. ASSESSMENT AND PLAN: 1. Mr. Lachelle Guerrero is an 82-year-old, gentleman with a history of coronary artery disease, coronary artery bypass grafting, sick sinus syndrome, status post [employer] pacemaker implantation, hypertension, paroxysmal atrial fibrillation, colon cancer with liver metastasis. Presented with chest pain and has pedal edema. From a cardiac standpoint, we will get an echocardiogram to assess cardiac and valvular function. 2. He is going to undergo a CT scan to rule out pulmonary embolism given his elevated D-dimers. He is on Coumadin. However, INR is subtherapeutic. If it is negative for pulmonary embolism, we will set him up to undergo a Cardiolite stress test to assess for and rule out ischemia. 3. Hypertension. Continue with his medications. 4. He has gastroesophageal reflux disease. Continue with Protonix. 5. Hypertension. Came in with elevated blood pressures. He is on metoprolol 50 mg twice a day. We will continue the same. 6. As far as pedal edema is concerned, his venous Dopplers were negative. He is on intravenous Lasix. Would recommend continuing intravenous Lasix. We will also get liver function tests to make sure that he does not have any malnutrition to account for his pedal edema given his multiple medical problems. Thank you for the consult. We will follow hospital course. cc: MD Tang Gutiérrez Jr, MD
[2018-07-05 12:27] LABS: ALB/GLOB RATIO 1.3; ALBUMIN 3.5 g/dL (3.5-5.0); DIRECT BILIRUBIN 0.1 mg/dL (0.00-0.20); TOTAL BILIRUBIN 0.64 mg/dL (0.20-1.00); TOTAL PROTEIN 6.2 g/dL (6.3-8.3)
--- NOTE | 2018-07-05 12:59 | Diag Imaging Result Doc PS360 ---
CT ANGIOGRM PULMONARY ARTERIES - 07/05/2018 INDICATION: cp/elevated d-dimer TECHNIQUE: Axial CT images were obtained after administering intravenous contrast. Coronal MIP images were generated. COMPARISON: None FINDINGS: There is no pulmonary embolism. There are sternotomy wires. There is a left sided dual chamber pacemaker in good position. There is severe cardiomegaly. There are CABG changes. There is a trace right pleural effusion. There are dense, coarse peripheral opacities with some honeycombing compatible with fibrosis. There is also diffuse interstitial groundglass opacity compatible with interstitial pulmonary edema. Upper abdominal images are unremarkable. No acute bony lesions. IMPRESSION: One. Cardiomegaly, pulmonary edema, trace pleural effusion. 2. Advanced pulmonary fibrosis. This exam was performed using automated exposure control, adjustment of mA or kV according to patient size, and/or use of iterative reconstruction technique Electronically signed by Akhil Malone 07/05/2018 12:56 PM
[2018-07-05] MEDS: COUMADIN PO SCH (21:27)
[2018-07-05] MEDS: ZOLOFT PO SCH (21:27)
[2018-07-05] MEDS: PRAVACHOL PO SCH (21:27)
[2018-07-05] MEDS: COLACE PO SCH (21:27)
--- NOTE | 2018-07-05 21:28 | ECHO REPORT ---
ORDER DATE: 07/05/2018 INDICATION: An 82-year-old male with chest pain, coronary heart disease. M-MODE MEASUREMENTS: Left ventricle end diastole: 5.5. Left ventricle end systole: 4.1. Posterior wall: 1.0. Interventricular septum: 1.0. Left atrium: 5.0. Aortic root: 4.3. SUMMARY OF 2-DIMENSIONAL IMAGIN. The left ventricular chamber appears to be significantly enlarged. Left ventricular systolic function appears to be mildly decreased, estimated to be in the range of 50% to 55%. I believe there is hypokinesis of the inferior wall. 2. The right ventricle appears to be normal. The aortic valve shows sclerosis of the cusps with a mild degree of regurgitation. The mitral valves show a mild degree of regurgitation. 3. Pulsed wave Doppler of mitral inflow shows reversal of the E/A ratio. 4. Tissue Doppler of septal and lateral mitral annulus averages 4.5 cm. There is impairment of left ventricular relaxation. 5. The atria are significantly dilated. 6. There is a mild degree of tricuspid regurgitation with pulmonary pressure estimated at 40 mmHg. 7. A pacemaker lead appears to be present. 8. The E/A ratio is estimated at 0.5. 9. There is no pericardial effusion. No mass and no thrombus. SUMMARY: This study shows: 1. Dilated left ventricle with mildly decreased systolic function, ejection fraction of 50% to 55% with impairment of the inferior posterior wall. 2. Mild degree of mitral and aortic regurgitation. 3. Trace tricuspid regurgitation with a pulmonary pressure of 35 mmHg. 4. Impaired left ventricular relaxation/early diastolic dysfunction. 5. Both atria are dilated. Clinical correlation recommended. cc: MD Yani Rojas PA Roger H. Moss Jr, MD
[2018-07-06] MEDS: NITROGLYCERIN TOP SCH ×4 (01:42→21:37)
[2018-07-06] MEDS: PROTONIX PO SCH ×2 (05:32→07:02)
[2018-07-06 05:37] LABS: INR 1.06; PROTIME 14.6 Seconds (11.0-16.0)
[2018-07-06 05:39] LABS: CALCIUM 8.5 mg/dL (8.8-10.2); CREATININE 1.3 mg/dL (0.7-1.2); MAGNESIUM 1.7 mg/dL (1.5-2.7); POTASSIUM 3.9 mmol/L (3.5-5.1)
[2018-07-06] MEDS ORDERED: LEXISCAN ONE (08:50)
[2018-07-06] MEDS: METAMUCIL POWDER PACKET PO SCH ×2 (11:12→21:37)
[2018-07-06] MEDS: LOVENOX SUBQ SCH (11:12)
[2018-07-06] MEDS: LOPRESSOR PO SCH ×2 (11:13→21:37)
[2018-07-06] MEDS: TUMS EXTRA STRENGTH PO SCH (11:13)
[2018-07-06] MEDS: VITAMIN B-12 SL SCH (11:13)
[2018-07-06] MEDS: ASPIRIN PO SCH (11:13)
[2018-07-06] MEDS: LASIX IV SCH (11:14)
--- NOTE | 2018-07-06 13:01 | PROGRESS NOTE ---
DATE: 07/06/2018 SUBJECTIVE: Still seeing Mr. Guerrero in Dr. Hernandez' absence. The patient is sitting up eating his lunch. He has undergone part of a nuclear stress test this morning. Lexiscan results are pending. He has had no further chest pain since admission. He does have significant difficulties with slow gradual decline in his ability to ambulate. This has culminated over the past week, an inability to get up out of bed or out of a wheelchair. In fact, in the hospital, he has not been able to get to the bedside commode, and his is elderly and cannot lift him and care for him at home. This seemed to start out as problems over a year ago, where he had fallen and broken his hip. Then, he has had slow decline with his ambulatory status until now. OBJECTIVE: Vital signs: Afebrile, pulse 60, respirations 19, blood pressure 180/99. Cardiovascular: RRR. Lungs: Distant breath sounds. CTA. Extremities: No calf tenderness, cords, or significant edema. Neurologic: Cranial nerves are intact. He moves all extremities, but is weak generally diffusely. DIAGNOSTIC DATA: Sodium is 140, potassium 3.9, chloride 100, CO2 30, BUN 31, creatinine 1.3, calcium 8.5, magnesium 1.7. LFTs are normal. Total protein 6.2, albumin 3.5. Echocardiogram was done yesterday and reveals dilated left ventricle with mildly decreased systolic function, EF of 50% to 55% with impairment of inferior-posterior wall motion, mild MR and AI, trace TR. Both atria are dilated, some early diastolic dysfunction noted. CT pulmonary angiogram yesterday revealed cardiomegaly, pulmonary edema, trace pleural effusions, some advanced pulmonary fibrotic changes, which is daughter says has been chronic. ASSESSMENT: 1. Chest pains x1 prior to admission. 2. Coronary artery disease with prior history of coronary artery bypass graft. 3. Pulmonary fibrotic changes, fairly prominent. 4. Colon cancer with metastasis to liver, on chemotherapy per Dr. Black. 5. History of paroxysmal atrial fibrillation. 6. Gastroesophageal reflux disease. 7. Hyperlipidemia. 8. B12 deficiency. 9. Hypertension. 10. Diverticulosis. 11. Internal hemorrhoids. 12. Remote history of esophageal stricture. 13. Benign prostatic hypertrophy. 14. Nonambulatory. PLAN: Will start PT here in the hospital and get social insurance analyst to work on rehab bed as it does not appear his is going to be able to take care of him at all at home. Continue prophylaxis of DVT with Lovenox. He is on Coumadin for prophylaxis of DVT at the port site, right upper chest. He remains on aspirin daily. He is on IV Lasix. We will await the Lexiscan nuclear stress test results. Hopefully, we will have that this evening. Plan on discharge to rehab when bed available if his heart checks out well. cc: MD Tang Bob Jr, MD
[2018-07-06] MEDS: COLACE PO SCH (21:37)
[2018-07-06] MEDS: PRAVACHOL PO SCH (21:37)
[2018-07-06] MEDS: ZOLOFT PO SCH (21:37)
[2018-07-06] MEDS: COUMADIN PO SCH (21:37)
--- NOTE | 2018-07-06 22:50 | Diag Imaging Result Document ---
PROCEDURE NAME: MYOCARDIAL PERF SCAN, STR/REST - 07/06/2018 INDICATION: Chest pain. PROCEDURES PERFORMED: 1. Lexiscan stress. 2. One-day stress rest myocardial perfusion imaging. PROCEDURE IN DETAIL: Mr. Guerrero was brought to the nuclear laboratory and had a resting study with injection of 13.9 mCi of technetium-99m sestamibi with usual imaging protocol utilized. Subsequently, he had a Lexiscan stress and, at peak stress, was injected with 39.9 mCi of technetium-99m sestamibi with usual imaging protocol utilized. FINDINGS: LEXISCAN STRESS RESULTS: 1. Baseline EKG shows sinus rhythm, right bundle branch block with an inferior scar noted. 2. Lexiscan stress did not demonstrate any clear evidence of ischemic-related EKG changes or significant arrhythmias during the course of the study. PERFUSION IMAGING RESULTS: 1. No evidence of abnormal extracardiac uptake. 2. TID ratio of 0.91. 3. Perfusion imaging demonstrates a moderate sized, moderate to severe intensity, fixed defect noted in the inferior apical, mid inferior, and basal inferior segments. This is likely suggestive of scar. There is no evidence of ischemia on this study. 4. Reduced ejection fraction of 42%. End-diastolic volume of 151. End systolic volume of 88. There is hypokinesis of the inferior wall as well as wall motion, suggesting a bundle branch block involving the septum. cc: MD Yani Friedman PA
[2018-07-07] MEDS: NITROGLYCERIN TOP SCH ×2 (03:17→08:26)
[2018-07-07] MEDS: PROTONIX PO SCH ×2 (05:54→06:33)
[2018-07-07] MEDS: METAMUCIL POWDER PACKET PO SCH ×3 (08:25→20:15)
[2018-07-07] MEDS: LASIX IV SCH (08:25)
[2018-07-07] MEDS: ASPIRIN PO SCH (08:25)
[2018-07-07] MEDS: TUMS EXTRA STRENGTH PO SCH (08:25)
[2018-07-07] MEDS: LOPRESSOR PO SCH ×2 (08:25→20:14)
[2018-07-07] MEDS: VITAMIN B-12 SL SCH (08:25)
[2018-07-07] MEDS: LOVENOX SUBQ SCH (08:26)
--- NOTE | 2018-07-07 09:55 | PROGRESS NOTE ---
DATE: 07/07/2018 SUBJECTIVE: Patient without any further chest pain. He is sitting up eating his breakfast. His was in attendance and helping to feed him. He remains weak in his legs, not able to get up. Physical therapy has begun to work with the patient in this regard and he is awaiting a rehab bed. Fortunately, he had a Lexiscan stress test yesterday, which revealed no new ischemic findings, but prominent scar is noted, with EF around 42% to 45%. OBJECTIVE: Vital Signs: Blood pressure continues to run high 183/97, pulse 59, respirations 24, O2 saturation on room air 94% to 96%. He is afebrile. Cardiovascular: Regular rate and rhythm. Lungs: Decreased breath sounds left lung base. Otherwise clear to auscultation. Abdomen: Soft, nontender, nondistended. Active bowel sounds. Positive bowel movements. Extremities: The lower extremity edema has improved and may be a trace at this point. Neurological: He is alert and oriented x3, and moves all extremities, but is very weak in his lower extremities, rendering him nonambulatory at this time. ASSESSMENT: 1. Chest pains with no definite etiology found, but with negative findings for pulmonary embolus and for new coronary blockages. 2. Coronary artery disease with prior history of coronary artery bypass grafting. 3. Pulmonary fibrotic changes, prominent. 4. Colon cancer with metastasis to the liver, on chemotherapy per Dr. Black. 5. History of paroxysmal atrial fibrillation. 6. Hypertension. 7. Gastroesophageal reflux disease. 8. Hyperlipidemia. 9. B12 deficiency. 10. Diverticulosis. 11. Internal hemorrhoids. 12. Remote history of esophageal stricture. 13. Benign prostatic hypertrophy. 14. Lower extremity weakness rendering him nonambulatory and his is unable to take care of him at home. PLAN: Will continue PT here in the hospital and Refractory Furnace Designer is working to try to find a rehab bed available. Continue aspirin daily and Lovenox prophylaxis of DVT. Will change him off topical nitrates to oral nitrates. Continue metoprolol 100 mg in the morning, [address] Cabrera. We may need to add additional blood pressure medications. I will discuss this with Cardiology. That could include a low-dose ALIREZA inhibitor, but he does have some mild renal insufficiency tendencies, so will need to watch his creatinine closely if we do that, or we might consider addition of hydralazine. Also, continue daily Lasix IV 40 mg. cc: MD Tang Bob Jr, MD
[2018-07-07] MEDS: IMDUR PO SCH ×2 (10:56→20:14)
[2018-07-07] MEDS: ZOLOFT PO SCH (20:13)
[2018-07-07] MEDS: COUMADIN PO SCH (20:13)
[2018-07-07] MEDS: PRAVACHOL PO SCH (20:13)
[2018-07-07] MEDS: COLACE PO SCH (20:14)
[2018-07-07] MEDS: TYLENOL PO PRN (21:13)
[2018-07-08] MEDS: TYLENOL PO PRN (03:21)
[2018-07-08 05:35] LABS: HEMATOCRIT 35.6 % (42.0-52.0); HEMOGLOBIN 11.3 g/dL (14.0-18.0); MCH 30.5 PG (27-31); MCHC 31.7 g/dL (33-37); MPV 10.4 FL (7.4-10.4); RBC 3.71 XMIL (4.7-6.1); RDW 13.6 % (11.5-14.5); WBC 7.25 X1000 (4.8-10.8)
[2018-07-08 06:04] LABS: CALCIUM 8.9 mg/dL (8.8-10.2); CREATININE 1.8 mg/dL (0.7-1.2); POTASSIUM 4.1 mmol/L (3.5-5.1)
[2018-07-08] MEDS: PROTONIX PO SCH (06:26)
[2018-07-08] MEDS: IMDUR PO SCH ×2 (09:05→22:12)
[2018-07-08] MEDS: LOPRESSOR PO SCH ×2 (09:05→22:12)
[2018-07-08] MEDS: LASIX IV SCH (09:05)
[2018-07-08] MEDS: LOVENOX SUBQ SCH (09:05)
[2018-07-08] MEDS: VITAMIN B-12 SL SCH (09:05)
[2018-07-08] MEDS: METAMUCIL POWDER PACKET PO SCH ×2 (09:05→22:11)
[2018-07-08] MEDS: TUMS EXTRA STRENGTH PO SCH (09:05)
[2018-07-08] MEDS: ASPIRIN PO SCH (09:05)
--- NOTE | 2018-07-08 15:26 | PROGRESS NOTE ---
DATE: 07/08/2018 SUBJECTIVE: This is an [id number]-white gentleman who was admitted to the hospital with chest pain. The patient is well known to me from previous admission. Interim history stress test was negative. Swelling is much better. He is extremely weak. Family wants to go for rehab. I discussed with the school social worker probably a bed will be available on Tuesday of next week. OBJECTIVE: Vital signs: Temperature is 97, blood pressure is stable. HEENT: Within normal limits. Neck: Supple. Chest: Clear. Heart: Heart sounds are regular. Abdomen: Soft and nontender. Decreased edema. INVESTIGATIONS: CBC showed a white cell count of 7.2, hematocrit 35, platelets 153. SMA-7 showed a sodium of 142, potassium 4, BUN 48, creatinine 1.8. Cardiac enzymes were negative. ASSESSMENT AND PLAN: 1. Chest pain. Positive d-dimer. Venous Dopplers were negative. Low suspicion for pulmonary embolus. Follow up stress test is negative. 2. Azotemia. Decreased edema. Discontinue IV Lasix. 3. Hyperlipidemia. On Pravachol. 4. Coronary artery disease. On aspirin and Lopressor. 5. Deep vein thrombosis prophylaxis with Lovenox. 6. GI prophylaxis with IV Protonix. 7. Metastatic colon cancer. Normal CA. Stable. 8. Fatigue and weakness. Normal CK. He is on Pravachol. Continue physical therapy. Waiting for placement. Family is not able to take care of him at home. Also going for chemotherapy on July 19, 2018. 9. B12 deficiency and vitamin D deficiency. On replacement. DOCUMENTATION TIME: 25 minutes. cc: MD Tang Watts Jr, MD
[2018-07-08] MEDS: PRAVACHOL PO SCH (22:11)
[2018-07-08] MEDS: COLACE PO SCH (22:11)
[2018-07-08] MEDS: ZOLOFT PO SCH (22:11)
[2018-07-08] MEDS: COUMADIN PO SCH (22:12)
[2018-07-09] MEDS: PROTONIX PO SCH (06:25)
[2018-07-09] MEDS: TUMS EXTRA STRENGTH PO SCH (10:18)
[2018-07-09] MEDS: VITAMIN B-12 SL SCH (10:18)
[2018-07-09] MEDS: METAMUCIL POWDER PACKET PO SCH ×3 (10:18→21:29)
[2018-07-09] MEDS: IMDUR PO SCH ×2 (10:18→21:29)
[2018-07-09] MEDS: LOPRESSOR PO SCH ×2 (10:19→21:29)
[2018-07-09] MEDS: ASPIRIN PO SCH (10:19)
[2018-07-09] MEDS: LOVENOX SUBQ SCH (10:19)
--- NOTE | 2018-07-09 11:45 | PROGRESS NOTE ---
DATE: 07/09/2018 Mr. Guerrero's oral intake is very poor. Is his he is feeling better. He is in some pain. He has metastatic colon carcinoma. Recently had a nuclear test done which was negative for ischemia. Ejection fraction was 42%. He is status post bypass surgery. His BUN is 48, creatinine 1.8. Electrolytes are normal. White count was 7.25, hemoglobin 11.3. I am going to order Glucerna for him and check his fluid balance. cc: MD Tang Lawson Jr, MD
[2018-07-09] MEDS: COUMADIN PO SCH (21:29)
[2018-07-09] MEDS: PRAVACHOL PO SCH (21:29)
[2018-07-09] MEDS: COLACE PO SCH (21:29)
[2018-07-09] MEDS: ZOLOFT PO SCH (21:29)
[2018-07-09] MEDS: TYLENOL PO PRN (22:06)
[2018-07-10] MEDS: PROTONIX PO SCH (06:31)
[2018-07-10] MEDS: ASPIRIN PO SCH (09:57)
[2018-07-10] MEDS: TUMS EXTRA STRENGTH PO SCH (09:57)
[2018-07-10] MEDS: VITAMIN B-12 SL SCH (09:57)
[2018-07-10] MEDS: LOPRESSOR PO SCH ×2 (09:57→23:02)
[2018-07-10] MEDS: IMDUR PO SCH ×2 (09:58→23:02)
[2018-07-10] MEDS: LOVENOX SUBQ SCH (09:58)
[2018-07-10] MEDS: METAMUCIL POWDER PACKET PO SCH ×2 (09:59→23:01)
--- NOTE | 2018-07-10 12:03 | PROGRESS NOTE ---
DATE: 07/10/2018 Mr. Guerrero feels somewhat better. He stood by himself today. His oral intake is still liquids. His vital signs are stable. Lungs sound much better. He is waiting for a bed at rehab. cc: MD Tang Lawson Jr, MD
[2018-07-10 12:34] LABS: CALCIUM 8.9 mg/dL (8.8-10.2); CREATININE 1.2 mg/dL (0.7-1.2); POTASSIUM 4.3 mmol/L (3.5-5.1)
[2018-07-10] MEDS: PRAVACHOL PO SCH (23:01)
[2018-07-10] MEDS: COUMADIN PO SCH (23:01)
[2018-07-10] MEDS: COLACE PO SCH (23:01)
[2018-07-10] MEDS: ZOLOFT PO SCH (23:02)
[2018-07-11] MEDS: PROTONIX PO SCH (06:25)
--- NOTE | 2018-07-11 09:34 | PROGRESS NOTE ---
DATE: 07/11/2018 SUBJECTIVE: An 82-year-old white gentleman admitted with chest pain, which was nonreproducible and atypical. Patient also had leg swelling. The patient underwent stress test and it was negative. Leg swelling is improving. The patient does feel weak. Plan is to send patient to the rehab. Oral intake is fair to poor. He denied any nausea or vomiting. No diarrhea, blood or mucus in the stool. Admission history and physical noted. OBJECTIVE: Vital signs: Blood pressure 171/91, pulse 60, respirations 16, temperature 98.3 degrees. Skin: Senile turgor. Neck: Supple. No JVD. Lungs: Bibasilar crepitation. Heart: S1 and S2 heard. Abdomen: Soft. No distention. Bowel sounds present. LINE MECHANIC: Alert, awake. Able to move all 4 limbs. Uncooperative for detailed neurologic examination. LABORATORY DATA: Blood work done yesterday: BUN 43, creatinine 1.2, potassium 4.3. PATIENT MEDICAL PROBLEMS: This includes chest pain. Stress test was negative for reversible ischemia. The patient had elevated D-dimer. Venous Doppler was negative. V/Q scan was low probability. Azotemia, improving. History of metastatic colon cancer. Hyperlipidemia on Pravachol. Overall weakness and fatigue. PLAN: The plan is to send patient to the rehab. The patient waiting for rehab placement. Overall plan discussed with the patient and family. They are in agreement. cc: MD Tang Mathur Jr, MD
[2018-07-11] MEDS: METAMUCIL POWDER PACKET PO SCH ×2 (10:22→21:40)
[2018-07-11] MEDS: LOPRESSOR PO SCH ×2 (10:22→21:40)
[2018-07-11] MEDS: LOVENOX SUBQ SCH (10:22)
[2018-07-11] MEDS: VITAMIN B-12 SL SCH (10:23)
[2018-07-11] MEDS: IMDUR PO SCH ×2 (10:23→21:40)
[2018-07-11] MEDS: TUMS EXTRA STRENGTH PO SCH (10:23)
[2018-07-11] MEDS: ASPIRIN PO SCH (10:23)
[2018-07-11] MEDS: PRAVACHOL PO SCH (21:40)
[2018-07-11] MEDS: COLACE PO SCH (21:40)
[2018-07-11] MEDS: COUMADIN PO SCH (21:40)
[2018-07-11] MEDS: ZOLOFT PO SCH (21:40)
[2018-07-12] MEDS: TYLENOL PO PRN (00:54)
[2018-07-12] MEDS: PROTONIX PO SCH (06:11)
[2018-07-12] MEDS: VITAMIN B-12 SL SCH (09:07)
[2018-07-12] MEDS: VITAMIN D PO SCH (09:08)
[2018-07-12] MEDS: ASPIRIN PO SCH (09:08)
[2018-07-12] MEDS: LOPRESSOR PO SCH (09:08)
[2018-07-12] MEDS: IMDUR PO SCH (09:08)
[2018-07-12] MEDS: LOVENOX SUBQ SCH (09:09)
[2018-07-12] MEDS: TUMS EXTRA STRENGTH PO SCH (09:09)
[2018-07-12] MEDS: METAMUCIL POWDER PACKET PO SCH (09:12)
--- NOTE | 2018-07-12 09:24 | DISCHARGE SUMMARY ---
ADMISSION DATE: 07/03/2018 DISCHARGE DATE: 07/12/2018 FINAL DIAGNOSES: 1. Chest pain, noncardiac. 2. Coronary artery disease. 3. Metastatic colon cancer. 4. Gastroesophageal reflux disease. 5. History of paroxysmal atrial fibrillation, now resolved, back in normal sinus rhythm. 6. Hyperlipidemia. 7. Vitamin B 12 deficiency. 8. Hypertension. 9. Diverticulosis. 10. History of esophageal stricture. 11. Benign prostatic hyperplasia. 12. Dependent edema probably from azotemia. 13. Vitamin D deficiency. HISTORY OF PRESENT ILLNESS: The patient came to the hospital with chest pain that was somewhat atypical, but has a strong history of coronary artery disease, was admitted, [place] ruled out. He did have some pedal edema. Does have an ejection fraction of 50% to 55%. It was felt he probably had a little azotemia with a little low protein when he first came in, which may be causing some of his edema and also may be cause from dependent edema. He has not been able to get up and walk much, has been very weak. His stress test was negative. V/Q scan was low probability for pulmonary embolism, even though his D-dimer was slightly elevated. He is feeling better, but very weak. He says he has balance problems. We will be sending him to rehab. Consultation was with Dr. Cabrera, Cardiology. PHYSICAL EXAMINATION: General: In general, he is a well-developed, well-nourished, 82 year old in no apparent distress. He just feels too weak to be taken care of at home. HEENT: Normocephalic. EOMS intact. PERRLA. Throat clear. Lungs: Clear to auscultation and percussion without rhonchi, rales, or wheezes. Heart: Regular rate and rhythm without murmurs, gallops, or friction rubs. He does have a pacemaker. Abdomen: Soft. Active bowel sounds. No organomegaly or tenderness. He does have metastatic colon cancer to his liver. Neurological exam: Intact grossly. He does have a little bit of pedal edema. I think it is more dependent edema than anything else. He does have a port in and he is on 1 mg of warfarin because of the port, which will be continued. ASSESSMENT AND PLAN: Overall seems to be back to his normal health. The only addition to his medication was isosorbide mononitrate 30 mg p.o. b.i.d. The patient will go to rehab. Then, I will see him when he gets out of the hospital. cc: Tang Hernandez Jr, MD
[2018-07-12 11:11] VITALS: BP 177/98
== END 2018-07-12 14:13 | DRG 313 ==
LOC: SUPCPDRO → ED 08:58 → 3S 11:10 → 4N 07-08 16:32
PROVIDERS: ADMIT Emergency Medicine; ATTEND Emergency Medicine
CPT/HCPCS: 71020; 71046; 71275; 78452; 80048; 80076; 82040; 82378; 82550; 82805; 83735; 83880; 84484; 85025; 85027; 85379; 85610; 93005; 93010; 93017; 93306; 93970; 96374; 97162; 97530; 99285; A9270; A9500; J1650; J1940; J2785; Q9967